=== PATIENT | male | born 1950 | race Caucasian/White ===

== ENCOUNTER → 2017-04-04 | Outpatient (CLI) | payer MEDICARE ==
[~2017-04-04] MED LIST: ACET-1757 PO; ALLO300T PO; AMLO5TAB4 PO; ASPI-621 PO; CEPH-376 PO; CHOL2000 PO; ENOX100S5 SQ; FLUT16SP NS; HYDR1TAB12 PO; LEVO88TA43 PO; LISI-170 PO; LORA10TA62 PO; MAGN300C PO; METO25TA35 PO; METO50TA82 PO; MULT-412 PO; MULT1TAB60 PO; OMEP20TA62 PO; PANT40TA3 PO; PROM25SU35 PR; SORA200T PO; URSO300C27 PO; WARF3TAB PO-COUM; WARF5TAB PO; WARF5TAB7 PO; WARF7.5T6 PO; [UNRECOGNIZED DRUG - CODE] PO
== END | disposition home or self-care (01) ==
LOC: SUSANVILLE 07:00
PROVIDERS: ATTEND Internal Medicine Cardiovascular Disease
DX: I08.2 Rheumatic disorders of both aortic and tricuspid valves (principal); I77.819 Aortic ectasia, unspecified site; I25.10 Atherosclerotic heart disease of native coronary artery without angina pectoris; I10 Essential (primary) hypertension; E78.5 Hyperlipidemia, unspecified; Z95.5 Presence of coronary angioplasty implant and graft
CPT/HCPCS: 93306

== ENCOUNTER 2017-08-29 11:59 | Inpatient (IN) | payer MEDICARE ==
[~2017-08-29] VITALS: Ht 180.3 cm; Wt 88.4 kg
[~2017-08-29 11:59] MED LIST changes: +AMIO200T42 PO; +CALC667C PO; +FLAV100T PO; +MIDO5TAB PO; +WARF-36 PO; -WARF5TAB7 PO; +WARF7.5T46 PO; -WARF7.5T6 PO
[2017-08-29] MEDS ORDERED: SODIUM CHLORIDE FLUSH 10ML SYR IVF ONE (12:30)
[2017-08-29] MEDS ORDERED: ALBUTEROL/IPRATROPIUM 2.5MG/0.5MG, 3 ML NPPB ONE (12:30)
[2017-08-29] MEDS ORDERED: PLEASE ENTER HEIGHT AND WEIGHT MC SCH (12:30)
[2017-08-29] MEDS ORDERED: ALBUTEROL/IPRATROPIUM 2.5MG/0.5MG, 3 ML ONE (12:36)
[2017-08-29] MEDS ORDERED: HYDROcodone/APAP 5/325 TABLET ONE (12:47)
[2017-08-29 12:49] LABS: ALANINE AMINOTRANSFERASE 29 U/L (12-78); ALBUMIN 2.5 g/dL (3.4-5.0); ANION GAP 12 mmol/L (5-15); CHLORIDE 99 mmol/L (98-107); CREATININE 5.14 mg/dL (0.7-1.3)
[2017-08-29 12:54] LABS: ALKALINE PHOSPHATASE 93 U/L (45-117); BILIRUBIN,TOTAL 0.4 mg/dL (0.2-1.0); TOTAL PROTEIN 6.9 g/dL (6.4-8.2); TROPONIN I < 0.015 ng/mL (0.000-0.045)
[2017-08-29 13:02] LABS: MD YES; MEAN CORPUSCULAR HEMOGLOBIN 31.2 pg (27.5-34.5); MEAN CORPUSCULAR HGB CONC 33.4 g/dL (33.2-36.2); MEAN CORPUSCULAR VOLUME 93.3 fL (81-97); MEAN PLATELET VOLUME 7.1 fL (7.4-10.4); PLATELET COUNT 140 x10^3/uL (130-400); RED BLOOD COUNT 3.79 x10^6/uL (4.38-5.82); RED CELL DISTRIBUTION WIDTH 16.3 % (9.4-14.8)
[2017-08-29 13:08] LABS: <PLATELET ESTIMATE> ADEQUATE; <PLT MORPHOLOGY> NORMAL PLT MORPH; EOS#(MANUAL) 0.96 x10^3/uL (0.0-0.4); EOS% (MANUAL) 15 % (1-7); LYMPH#(MANUAL) 0.32 x10^3/uL (1-3.4); LYMPHS% (MANUAL) 5 % (22-44); MONOS#(MANUAL) 0.26 x10^3/uL (0.3-2.7); MONOS% (MANUAL) 4 % (2-9); SEG#(MANUAL) 4.86 x10^3/uL (1.8-6.8); SEGS% (MANUAL) 76 % (42-75)
[2017-08-29 13:09] LABS: ANISOCYTOSIS 1+; POLYCHROMASIA 1+
[2017-08-29] MEDS ORDERED: ERGO500017 PO (14:07)
[2017-08-29] MEDS ORDERED: TAMS0.4C2 PO (14:07)
[2017-08-29] MEDS ORDERED: WARF2.5T73 PO (14:07)
[2017-08-29] MEDS ORDERED: WARF-36 PO (14:07)
[2017-08-29] MEDS ORDERED: ONDA4TAB7 PO (14:13)
[2017-08-29] MEDS ORDERED: CALC0.25 PO (14:13)
[2017-08-29] MEDS ORDERED: LACT1CAP35 PO (14:13)
[2017-08-29] MEDS ORDERED: ALLO100T30 PO (14:13)
[2017-08-29] MEDS ORDERED: FURO-93 PO (14:13)
[2017-08-29] MEDS ORDERED: OXYC-302 PO (14:13)
[2017-08-29] MEDS ORDERED: OXYGEN INH (14:15)
[2017-08-29] MEDS ORDERED: SODIUM CHLORIDE FLUSH 10ML SYR IVF PRN (14:30)
[2017-08-29 15:48] LABS: INTERNATIONAL NORMALIZED RATIO 1.63 (0.93-1.1); PROTHROMBIN TIME 16.8 Seconds (9.6-11.5)
[2017-08-29 16:26] VITALS: BP 146/82
[2017-08-29] MEDS: TORSEMIDE 20 MG TABLET PO SCH (16:55)
[2017-08-29] MEDS ORDERED: ALBUTEROL SULFATE 2.5 MG/3 ML NPPB PRN (17:00)
[2017-08-29 17:21] LABS: TROPONIN I < 0.015 ng/mL (0.000-0.045)
[2017-08-29] MEDS ORDERED: WARFARIN 3 MG TABLET PO-COUM ONE (18:00)
[2017-08-29 18:41] VITALS: BP 129/75
[2017-08-29 23:30] LABS: TROPONIN I < 0.015 ng/mL (0.000-0.045)
[2017-08-30 01:49] VITALS: BP 131/70
[2017-08-30 05:01] LABS: BASOPHILS # (AUTO) 0.02 x10^3/uL (0-0.1); BASOPHILS % (AUTO) 0 % (0-1); EOSINOPHILS # (AUTO) 1.04 x10^3/uL (0-0.4); EOSINOPHILS % (AUTO) 20 % (1-7); LYMPHOCYTES # (AUTO) 0.85 x10^3/uL (1-3.4); LYMPHOCYTES % (AUTO) 16 % (22-44); MD NO; MEAN CORPUSCULAR HEMOGLOBIN 31.4 pg (27.5-34.5); MEAN CORPUSCULAR HGB CONC 32.9 g/dL (33.2-36.2); MEAN CORPUSCULAR VOLUME 95.4 fL (81-97); MEAN PLATELET VOLUME 7.2 fL (7.4-10.4); MONOCYTES % (AUTO) 10 % (2-9); NEUTROPHILS % (AUTO) 54 % (42-75); PLATELET COUNT 126 x10^3/uL (130-400); RED CELL DISTRIBUTION WIDTH 16.4 % (9.4-14.8)
[2017-08-30 05:07] LABS: INTERNATIONAL NORMALIZED RATIO 1.69 (0.93-1.1); PROTHROMBIN TIME 17.4 Seconds (9.6-11.5)
[2017-08-30 05:09] LABS: ALBUMIN 2.1 g/dL (3.4-5.0); CALCIUM 8.7 mg/dL (8.5-10.1); CHLORIDE 104 mmol/L (98-107)
[2017-08-30 05:20] LABS: ALANINE AMINOTRANSFERASE 23 U/L (12-78); ALKALINE PHOSPHATASE 78 U/L (45-117); ANION GAP 11 mmol/L (5-15); BILIRUBIN,TOTAL 0.5 mg/dL (0.2-1.0); CHOL/HDL RATIO 5.3; CHOLESTEROL, TOTAL 143 mg/dL (140-239); CREATININE 5.84 mg/dL (0.7-1.3); HDL CHOL % 19 % (26-37); HDL CHOLESTEROL (DIRECT) 27 mg/dL (40-60); LDL CHOLESTEROL,CALCULATED 89 mg/dL (54-169); LDL/HDL RATIO 3.3 (0.5-3.0); TOTAL PROTEIN 6.1 g/dL (6.4-8.2); TRIGLYCERIDES 134 mg/dL (50-200); VLDL CHOLESTEROL 27 mg/dL (0-25)
[2017-08-30] MEDS ORDERED: ASPIRIN 325 MG TABLET PO SCH (06:00)
[2017-08-30 08:00] VITALS: BP 153/86
[2017-08-30] MEDS ORDERED: REGADENOSON 0.4 MG/5 ML SYRINGE ONE (08:09)
[2017-08-30] MEDS: TORSEMIDE 20 MG TABLET PO SCH (10:53)
[2017-08-30 13:41] VITALS: BP 149/83
[2017-08-30] MEDS: CALCIUM ACETATE 667 MG CAPSULE PO SCH (16:34)
[2017-08-30] MEDS: URSODIOL 300 MG CAPSULE PO SCH ×2 (16:34→21:01)
[2017-08-30] MEDS ORDERED: WARFARIN 5 MG TABLET PO-COUM ONE (18:00)
[2017-08-30 18:28] VITALS: BP 156/85
[2017-08-30] MEDS: ATORVASTATIN 20 MG TABLET PO SCH (21:02)
[2017-08-30] MEDS: AMIODARONE 200 MG TABLET PO SCH (21:02)
[2017-08-31 01:27] VITALS: BP 147/87
[2017-08-31 04:53] LABS: INTERNATIONAL NORMALIZED RATIO 1.63 (0.93-1.1); PROTHROMBIN TIME 16.8 Seconds (9.6-11.5)
[2017-08-31 04:59] LABS: ALANINE AMINOTRANSFERASE 22 U/L (12-78); ALBUMIN 2.2 g/dL (3.4-5.0); ANION GAP 12 mmol/L (5-15); CALCIUM 8.9 mg/dL (8.5-10.1); CHLORIDE 102 mmol/L (98-107); CREATININE 6.38 mg/dL (0.7-1.3)
[2017-08-31 05:01] LABS: ALKALINE PHOSPHATASE 79 U/L (45-117); BILIRUBIN,TOTAL 0.3 mg/dL (0.2-1.0); TOTAL PROTEIN 6.2 g/dL (6.4-8.2)
[2017-08-31] MEDS ORDERED: ASPIRIN 81 MG TABLET EC PO SCH (06:00)
[2017-08-31] MEDS: CALCIUM ACETATE 667 MG CAPSULE PO SCH ×3 (08:00→17:38)
[2017-08-31] MEDS: AMIODARONE 200 MG TABLET PO SCH ×2 (08:32→20:58)
[2017-08-31] MEDS: ALLOPURINOL 100 MG TABLET PO SCH (08:32)
[2017-08-31] MEDS: OMEPRAZOLE 20 MG CAPSULE.DR PO SCH (08:32)
[2017-08-31] MEDS: LEVOTHYROXINE 88 MCG TABLET PO SCH (08:32)
[2017-08-31] MEDS: TAMSULOSIN 0.4 MG CAP.ER.24H PO SCH (08:33)
[2017-08-31] MEDS: MULTIVITAMIN 1 TABLET PO SCH (08:33)
[2017-08-31 08:45] VITALS: BP 146/70
[2017-08-31] MEDS: TORSEMIDE 20 MG TABLET PO SCH (09:00)
[2017-08-31] MEDS: URSODIOL 300 MG CAPSULE PO SCH ×2 (09:00→20:58)
[2017-08-31] MEDS ORDERED: SORAFENIB TOSYLATE 200 MG PO SCH (09:00)
[2017-08-31] MEDS ORDERED: MIDAZOLAM 1 MG/ML, 5ML ONE (11:46)
[2017-08-31] MEDS ORDERED: FENTANYL PF 100 MCG/2ML ONE (11:46)
[2017-08-31] MEDS ORDERED: BIVALIRUDIN 250 MG ONE (11:47)
[2017-08-31] MEDS ORDERED: NITROGLYCERIN 5 MG/ML, 10ML ONE (11:47)
[2017-08-31] MEDS ORDERED: TICAGRELOR 90 MG TABLET ONE (11:47)
[2017-08-31] MEDS ORDERED: HEPARIN 1,000 UNITS/ML, 10ML ONE (11:47)
[2017-08-31] MEDS ORDERED: LIDOCAINE 2%, 2ML ONE (11:47)
[2017-08-31] MEDS ORDERED: VERAPAMIL 2.5 MG/ML, 2ML ONE (11:47)
[2017-08-31] MEDS ORDERED: CLOPIDOGREL 300 MG TABLET ONE (13:00)
[2017-08-31] MEDS ORDERED: BIVALIRUDIN 250 MG in DEXTROSE 5% 50 ML IV SCH (13:07)
[2017-08-31 14:00] VITALS: BP 126/66
[2017-08-31] MEDS ORDERED: WARFARIN 5 MG TABLET PO-COUM SCH (18:00)
[2017-08-31 19:25] VITALS: BP 155/94
[2017-08-31] MEDS ORDERED: HYDROcodone/APAP 5/325 TABLET PO PRN (20:00)
[2017-08-31] MEDS: ATORVASTATIN 20 MG TABLET PO SCH (20:58)
[2017-09-01 00:45] VITALS: BP 144/83
[2017-09-01 04:46] LABS: INTERNATIONAL NORMALIZED RATIO 1.69 (0.93-1.1); PROTHROMBIN TIME 17.4 Seconds (9.6-11.5)
[2017-09-01 04:52] LABS: ANION GAP 13 mmol/L (5-15); CALCIUM 8.8 mg/dL (8.5-10.1); CHLORIDE 99 mmol/L (98-107)
[2017-09-01 04:57] LABS: ALANINE AMINOTRANSFERASE 22 U/L (12-78); ALKALINE PHOSPHATASE 82 U/L (45-117); BILIRUBIN,TOTAL 0.5 mg/dL (0.2-1.0); CREATININE 6.86 mg/dL (0.7-1.3); TOTAL PROTEIN 5.9 g/dL (6.4-8.2)
[2017-09-01 07:35] LABS: BASOPHILS # (AUTO) 0.01 x10^3/uL (0-0.1); BASOPHILS % (AUTO) 0 % (0-1); EOSINOPHILS # (AUTO) 1.02 x10^3/uL (0-0.4); EOSINOPHILS % (AUTO) 20 % (1-7); LYMPHOCYTES # (AUTO) 0.66 x10^3/uL (1-3.4); LYMPHOCYTES % (AUTO) 13 % (22-44); MD NO; MEAN CORPUSCULAR HEMOGLOBIN 30.5 pg (27.5-34.5); MEAN CORPUSCULAR HGB CONC 32.7 g/dL (33.2-36.2); MEAN CORPUSCULAR VOLUME 93.3 fL (81-97); MEAN PLATELET VOLUME 7.3 fL (7.4-10.4); MONOCYTES # (AUTO) 0.59 x10^3/uL (0.2-0.8); MONOCYTES % (AUTO) 11 % (2-9); NEUTROPHILS # (AUTO) 2.96 x10^3/uL (1.8-6.8); NEUTROPHILS % (AUTO) 57 % (42-75); PLATELET COUNT 140 x10^3/uL (130-400); RED BLOOD COUNT 3.29 x10^6/uL (4.38-5.82); RED CELL DISTRIBUTION WIDTH 16.5 % (9.4-14.8)
[2017-09-01 08:30] VITALS: BP 113/68
[2017-09-01] MEDS: TORSEMIDE 20 MG TABLET PO SCH (09:00)
[2017-09-01] MEDS: OMEPRAZOLE 20 MG CAPSULE.DR PO SCH (09:17)
[2017-09-01] MEDS: ALLOPURINOL 100 MG TABLET PO SCH (09:17)
[2017-09-01] MEDS: CLOPIDOGREL 75 MG TABLET PO SCH (09:17)
[2017-09-01] MEDS: TAMSULOSIN 0.4 MG CAP.ER.24H PO SCH (09:18)
[2017-09-01] MEDS: MULTIVITAMIN 1 TABLET PO SCH (09:18)
[2017-09-01] MEDS: LEVOTHYROXINE 88 MCG TABLET PO SCH (09:18)
[2017-09-01] MEDS: AMIODARONE 200 MG TABLET PO SCH (09:18)
[2017-09-01] MEDS: CALCIUM ACETATE 667 MG CAPSULE PO SCH ×3 (09:18→17:39)
[2017-09-01] MEDS ORDERED: DIPHENHYDRAMINE 25 MG CAPSULE PO ONE (10:30)
[2017-09-01] MEDS: URSODIOL 300 MG CAPSULE PO SCH ×2 (12:34→20:27)
[2017-09-01 13:30] VITALS: BP 148/91
[2017-09-01] MEDS ORDERED: WARFARIN 5 MG TABLET PO-COUM SCH (18:00)
[2017-09-01 19:38] VITALS: BP 135/78
[2017-09-01] MEDS: ATORVASTATIN 20 MG TABLET PO SCH (20:27)
[2017-09-02 01:12] VITALS: BP 118/73
[2017-09-02 05:31] LABS: INTERNATIONAL NORMALIZED RATIO 1.69 (0.93-1.1); PROTHROMBIN TIME 17.4 Seconds (9.6-11.5)
[2017-09-02 05:32] LABS: BASOPHILS # (AUTO) 0.01 x10^3/uL (0-0.1); BASOPHILS % (AUTO) 0 % (0-1); EOSINOPHILS # (AUTO) 0.95 x10^3/uL (0-0.4); EOSINOPHILS % (AUTO) 18 % (1-7); LYMPHOCYTES # (AUTO) 0.78 x10^3/uL (1-3.4); LYMPHOCYTES % (AUTO) 15 % (22-44); MD NO; MEAN CORPUSCULAR HEMOGLOBIN 31.1 pg (27.5-34.5); MEAN CORPUSCULAR HGB CONC 32.9 g/dL (33.2-36.2); MEAN CORPUSCULAR VOLUME 94.4 fL (81-97); MEAN PLATELET VOLUME 6.8 fL (7.4-10.4); MONOCYTES # (AUTO) 0.58 x10^3/uL (0.2-0.8); MONOCYTES % (AUTO) 11 % (2-9); NEUTROPHILS # (AUTO) 3.03 x10^3/uL (1.8-6.8); NEUTROPHILS % (AUTO) 57 % (42-75); PLATELET COUNT 103 x10^3/uL (130-400); RED BLOOD COUNT 3.08 x10^6/uL (4.38-5.82); RED CELL DISTRIBUTION WIDTH 16.9 % (9.4-14.8)
[2017-09-02 05:40] LABS: CALCIUM 8.7 mg/dL (8.5-10.1); CHLORIDE 104 mmol/L (98-107)
[2017-09-02 05:46] LABS: ALANINE AMINOTRANSFERASE 22 U/L (12-78); ALBUMIN 2.1 g/dL (3.4-5.0); ALKALINE PHOSPHATASE 72 U/L (45-117); ANION GAP 12 mmol/L (5-15); BILIRUBIN,TOTAL 0.4 mg/dL (0.2-1.0); CREATININE 6.04 mg/dL (0.7-1.3); TOTAL PROTEIN 5.8 g/dL (6.4-8.2)
[2017-09-02 08:00] VITALS: BP 116/67
[2017-09-02] MEDS: LEVOTHYROXINE 88 MCG TABLET PO SCH (08:45)
[2017-09-02] MEDS: CALCIUM ACETATE 667 MG CAPSULE PO SCH ×3 (08:45→17:23)
[2017-09-02] MEDS: MULTIVITAMIN 1 TABLET PO SCH (08:46)
[2017-09-02] MEDS: CLOPIDOGREL 75 MG TABLET PO SCH (08:46)
[2017-09-02] MEDS: TAMSULOSIN 0.4 MG CAP.ER.24H PO SCH (08:46)
[2017-09-02] MEDS: ALLOPURINOL 100 MG TABLET PO SCH (08:46)
[2017-09-02] MEDS: AMIODARONE 200 MG TABLET PO SCH (08:46)
[2017-09-02] MEDS: OMEPRAZOLE 20 MG CAPSULE.DR PO SCH (08:47)
[2017-09-02] MEDS: TORSEMIDE 20 MG TABLET PO SCH (08:48)
[2017-09-02] MEDS: URSODIOL 300 MG CAPSULE PO SCH ×2 (08:48→20:44)
[2017-09-02] MEDS ORDERED: DIPHENHYDRAMINE 25 MG CAPSULE PO ONE (09:00)
[2017-09-02] MEDS: ONDANSETRON ODT 4 MG PO PRN (12:29)
[2017-09-02 14:30] VITALS: BP 115/65
[2017-09-02] MEDS ORDERED: DEXTROMETHORPHAN 30 MG/5 ML ORAL SOL PO PRN (14:30)
[2017-09-02] MEDS ORDERED: WARFARIN 7.5 MG TABLET PO-COUM SCH (18:00)
[2017-09-02] MEDS: ATORVASTATIN 20 MG TABLET PO SCH (20:44)
[2017-09-02] MEDS: GUAIFENESIN 200 MG TABLET PO SCH (20:44)
[2017-09-02 20:45] VITALS: BP 125/76
[2017-09-03 03:08] VITALS: BP 116/64
[2017-09-03 05:47] LABS: INTERNATIONAL NORMALIZED RATIO 1.84 (0.93-1.1); PROTHROMBIN TIME 18.9 Seconds (9.6-11.5)
[2017-09-03 05:56] LABS: CHLORIDE 106 mmol/L (98-107)
[2017-09-03] MEDS: LEVOTHYROXINE 88 MCG TABLET PO SCH (06:00)
[2017-09-03 06:17] LABS: ALANINE AMINOTRANSFERASE 21 U/L (12-78); ALKALINE PHOSPHATASE 70 U/L (45-117); ANION GAP 8 mmol/L (5-15); BILIRUBIN,TOTAL 0.5 mg/dL (0.2-1.0); CREATININE 4.61 mg/dL (0.7-1.3); TOTAL PROTEIN 5.8 g/dL (6.4-8.2)
[2017-09-03 07:13] VITALS: BP 114/61
[2017-09-03] MEDS: CLOPIDOGREL 75 MG TABLET PO SCH (07:57)
[2017-09-03] MEDS: AMIODARONE 200 MG TABLET PO SCH (07:57)
[2017-09-03] MEDS: ALLOPURINOL 100 MG TABLET PO SCH (07:57)
[2017-09-03] MEDS: CALCIUM ACETATE 667 MG CAPSULE PO SCH ×3 (07:58→17:43)
[2017-09-03] MEDS: GUAIFENESIN 200 MG TABLET PO SCH ×2 (07:58→22:10)
[2017-09-03] MEDS: OMEPRAZOLE 20 MG CAPSULE.DR PO SCH (07:58)
[2017-09-03] MEDS: TAMSULOSIN 0.4 MG CAP.ER.24H PO SCH (07:58)
[2017-09-03] MEDS: TORSEMIDE 20 MG TABLET PO SCH (08:04)
[2017-09-03] MEDS: MULTIVITAMIN 1 TABLET PO SCH (08:04)
[2017-09-03] MEDS: URSODIOL 300 MG CAPSULE PO SCH ×2 (08:06→22:10)
[2017-09-03 12:45] VITALS: BP 128/70
[2017-09-03] MEDS ORDERED: WARFARIN 3 MG TABLET PO-COUM SCH (18:00)
[2017-09-03 19:20] VITALS: BP 132/65
[2017-09-03] MEDS: ATORVASTATIN 20 MG TABLET PO SCH (22:09)
[2017-09-04 00:58] VITALS: BP 123/56
[2017-09-04 05:16] LABS: INTERNATIONAL NORMALIZED RATIO 2.12 (0.93-1.1); PROTHROMBIN TIME 21.7 Seconds (9.6-11.5)
[2017-09-04 05:21] LABS: CHLORIDE 106 mmol/L (98-107)
[2017-09-04 05:29] LABS: ALANINE AMINOTRANSFERASE 21 U/L (12-78); ALKALINE PHOSPHATASE 64 U/L (45-117); BILIRUBIN,TOTAL 0.7 mg/dL (0.2-1.0); CALCIUM 9.3 mg/dL (8.5-10.1); CREATININE 6.17 mg/dL (0.7-1.3); TOTAL PROTEIN 5.8 g/dL (6.4-8.2)
[2017-09-04 05:32] LABS: ANION GAP 7 mmol/L (5-15)
[2017-09-04] MEDS: LEVOTHYROXINE 88 MCG TABLET PO SCH (06:00)
[2017-09-04] MEDS ORDERED: EPINEPHRINE 1 MG/ML, 1ML ONE (06:16)
[2017-09-04] MEDS ORDERED: BUPIVACAINE/PF 0.5% ONE (06:16)
[2017-09-04] MEDS ORDERED: LIDOCAINE GEL 2%, 5ML ONE (07:21)
[2017-09-04] MEDS ORDERED: FENTANYL PF 100 MCG/2ML ONE ×2 (07:21→08:22)
[2017-09-04] MEDS ORDERED: LIDOCAINE 2%, 10ML ONE (07:22)
[2017-09-04] MEDS ORDERED: ALBUTEROL SULFATE 2.5 MG/3 ML NPPB PRN (07:30)
[2017-09-04] MEDS ORDERED: hydrALAzine 20 MG/ML, 1ML IV PRN (07:30)
[2017-09-04] MEDS ORDERED: MEPERIDINE/PF 25MG/0.5ML IVPush PRN (07:30)
[2017-09-04] MEDS ORDERED: OXYcodone 5 MG/5 ML ORAL.SOL UDC PO PRN (07:30)
[2017-09-04] MEDS ORDERED: ACETAMINOPHEN 325 MG TABLET PO PRN (07:30)
[2017-09-04] MEDS ORDERED: LABETALOL 5MG/ML, 20ML IV PRN (07:30)
[2017-09-04] MEDS ORDERED: ONDANSETRON 2MG/ML, 2ML IVPush PRN (07:30)
[2017-09-04] MEDS ORDERED: MIDAZOLAM 1 MG/ML, 2ML IV PRN (07:30)
[2017-09-04] MEDS ORDERED: PROMETHAZINE 25 MG/ML, 1ML IV PRN (07:30)
[2017-09-04] MEDS ORDERED: ALBUTEROL/IPRATROPIUM 2.5MG/0.5MG, 3 ML NPPB PRN (07:30)
[2017-09-04] MEDS ORDERED: ROCURONIUM 10 MG/ML,10ML ONE (07:35)
[2017-09-04] MEDS ORDERED: GLYCOPYRROLATE 0.2MG/1ML, 5ML ONE (08:05)
[2017-09-04] MEDS ORDERED: CEFAZOLIN 1,000 MG ONE (08:05)
[2017-09-04] MEDS ORDERED: SUCCINYLCHOLINE 20 MG/ML, 10ML ONE (08:05)
[2017-09-04] MEDS ORDERED: PROPOFOL 10 MG/ML, 20ML ONE (08:05)
[2017-09-04] MEDS ORDERED: DEXAMETHASONE 4 MG/ML, 1ML ONE (08:05)
[2017-09-04] MEDS ORDERED: NEOSTIGMINE 1 MG/ML, 10ML ONE (08:05)
[2017-09-04] MEDS ORDERED: OXYcodone 5 MG/5 ML ORAL.SOL UDC ONE (08:22)
[2017-09-04] MEDS: FENTANYL PF 100 MCG/2ML IV PRN ×2 (08:25→08:39)
[2017-09-04 09:14] VITALS: BP 118/66
[2017-09-04] MEDS: MULTIVITAMIN 1 TABLET PO SCH (10:02)
[2017-09-04] MEDS: OMEPRAZOLE 20 MG CAPSULE.DR PO SCH (10:02)
[2017-09-04] MEDS: TAMSULOSIN 0.4 MG CAP.ER.24H PO SCH (10:02)
[2017-09-04] MEDS: AMIODARONE 200 MG TABLET PO SCH (10:02)
[2017-09-04] MEDS: URSODIOL 300 MG CAPSULE PO SCH ×2 (10:02→19:58)
[2017-09-04] MEDS: CALCIUM ACETATE 667 MG CAPSULE PO SCH ×3 (10:03→17:42)
[2017-09-04] MEDS: TORSEMIDE 20 MG TABLET PO SCH (10:03)
[2017-09-04] MEDS: ALLOPURINOL 100 MG TABLET PO SCH (10:03)
[2017-09-04] MEDS: GUAIFENESIN 200 MG TABLET PO SCH ×2 (10:08→19:58)
[2017-09-04] MEDS: CLOPIDOGREL 75 MG TABLET PO SCH (10:23)
[2017-09-04 12:21] VITALS: BP 111/64
[2017-09-04] MEDS: HYDROcodone/APAP 5/325 TABLET PO PRN ×2 (13:32→19:59)
[2017-09-04] MEDS ORDERED: WARFARIN 2.5 MG TABLET PO-COUM ONE (18:00)
[2017-09-04 19:25] VITALS: BP 125/68
[2017-09-04] MEDS: ATORVASTATIN 20 MG TABLET PO SCH (19:58)
[2017-09-05 01:59] VITALS: BP 130/65
[2017-09-05 05:41] LABS: INTERNATIONAL NORMALIZED RATIO 2.61 (0.93-1.1); PROTHROMBIN TIME 26.6 Seconds (9.6-11.5)
[2017-09-05 05:48] LABS: BASOPHILS % (AUTO) 0 % (0-1); CHLORIDE 104 mmol/L (98-107); EOSINOPHILS # (AUTO) 0.01 x10^3/uL (0-0.4); EOSINOPHILS % (AUTO) 0 % (1-7); LYMPHOCYTES % (AUTO) 6 % (22-44); MD NO; MEAN CORPUSCULAR HEMOGLOBIN 30.8 pg (27.5-34.5); MEAN CORPUSCULAR VOLUME 93.4 fL (81-97); MEAN PLATELET VOLUME 8.1 fL (7.4-10.4); MONOCYTES # (AUTO) 0.37 x10^3/uL (0.2-0.8); MONOCYTES % (AUTO) 5 % (2-9); NEUTROPHILS # (AUTO) 6.99 x10^3/uL (1.8-6.8); NEUTROPHILS % (AUTO) 89 % (42-75); PLATELET COUNT 123 x10^3/uL (130-400); RED BLOOD COUNT 3.22 x10^6/uL (4.38-5.82); RED CELL DISTRIBUTION WIDTH 16.8 % (9.4-14.8)
[2017-09-05 05:56] LABS: ALANINE AMINOTRANSFERASE 15 U/L (12-78); ALBUMIN 2.1 g/dL (3.4-5.0); ALKALINE PHOSPHATASE 72 U/L (45-117); ANION GAP 9 mmol/L (5-15); BILIRUBIN,TOTAL 0.5 mg/dL (0.2-1.0); CALCIUM 9.2 mg/dL (8.5-10.1); CREATININE 7.41 mg/dL (0.7-1.3); TOTAL PROTEIN 6.2 g/dL (6.4-8.2)
[2017-09-05] MEDS: HYDROcodone/APAP 5/325 TABLET PO PRN (06:06)
[2017-09-05] MEDS: LEVOTHYROXINE 88 MCG TABLET PO SCH (06:06)
[2017-09-05] MEDS: GUAIFENESIN 200 MG TABLET PO SCH ×2 (07:16→21:14)
[2017-09-05] MEDS: OMEPRAZOLE 20 MG CAPSULE.DR PO SCH (07:16)
[2017-09-05] MEDS: ONDANSETRON ODT 4 MG PO PRN (07:16)
[2017-09-05] MEDS ORDERED: ALBUMIN HUMAN 25% 100 ML IV PRN (08:00)
[2017-09-05] MEDS ORDERED: MIDODRINE 5 MG TABLET PO SCH (08:00)
[2017-09-05] MEDS ORDERED: DIPHENHYDRAMINE 50 MG/ML, 1ML IVPush SCH (08:00)
[2017-09-05] MEDS: CALCIUM ACETATE 667 MG CAPSULE PO SCH ×3 (08:29→17:53)
[2017-09-05 08:36] VITALS: BP 116/63
[2017-09-05 12:42] VITALS: BP 113/76
[2017-09-05] MEDS: TAMSULOSIN 0.4 MG CAP.ER.24H PO SCH (12:53)
[2017-09-05] MEDS: TORSEMIDE 20 MG TABLET PO SCH (12:53)
[2017-09-05] MEDS: AMIODARONE 200 MG TABLET PO SCH (12:53)
[2017-09-05] MEDS: URSODIOL 300 MG CAPSULE PO SCH ×2 (12:53→21:14)
[2017-09-05] MEDS: MULTIVITAMIN 1 TABLET PO SCH (12:53)
[2017-09-05] MEDS: CLOPIDOGREL 75 MG TABLET PO SCH (12:54)
[2017-09-05] MEDS: ALLOPURINOL 100 MG TABLET PO SCH (12:54)
[2017-09-05] MEDS ORDERED: WARFARIN 2 MG TABLET PO-COUM ONE (18:00)
[2017-09-05 19:29] VITALS: BP 130/62
[2017-09-05] MEDS: ATORVASTATIN 20 MG TABLET PO SCH (21:14)
[2017-09-06 01:24] VITALS: BP 109/59
[2017-09-06] MEDS: LEVOTHYROXINE 88 MCG TABLET PO SCH (06:00)
[2017-09-06 06:14] LABS: INTERNATIONAL NORMALIZED RATIO 2.11 (0.93-1.1); PROTHROMBIN TIME 21.6 Seconds (9.6-11.5)
[2017-09-06 07:10] VITALS: BP 107/57
[2017-09-06] MEDS: MULTIVITAMIN 1 TABLET PO SCH (08:31)
[2017-09-06] MEDS: TAMSULOSIN 0.4 MG CAP.ER.24H PO SCH (08:31)
[2017-09-06] MEDS: OMEPRAZOLE 20 MG CAPSULE.DR PO SCH (08:31)
[2017-09-06] MEDS: AMIODARONE 200 MG TABLET PO SCH (08:31)
[2017-09-06] MEDS: CLOPIDOGREL 75 MG TABLET PO SCH (08:31)
[2017-09-06] MEDS: GUAIFENESIN 200 MG TABLET PO SCH ×2 (08:31→22:07)
[2017-09-06] MEDS: CALCIUM ACETATE 667 MG CAPSULE PO SCH ×3 (08:32→17:19)
[2017-09-06] MEDS: TORSEMIDE 20 MG TABLET PO SCH (08:32)
[2017-09-06] MEDS: ALLOPURINOL 100 MG TABLET PO SCH (08:32)
[2017-09-06] MEDS: URSODIOL 300 MG CAPSULE PO SCH ×2 (08:32→22:08)
[2017-09-06 12:18] VITALS: BP 107/62
[2017-09-06] MEDS ORDERED: WARFARIN 5 MG TABLET PO-COUM ONE (18:00)
[2017-09-06 20:18] VITALS: BP 104/60
[2017-09-06] MEDS: ATORVASTATIN 20 MG TABLET PO SCH (22:07)
[2017-09-06] MEDS: HYDROcodone/APAP 5/325 TABLET PO PRN (22:18)
[2017-09-07 02:00] VITALS: BP 108/70
[2017-09-07 05:37] LABS: INTERNATIONAL NORMALIZED RATIO 1.7 (0.93-1.1); PROTHROMBIN TIME 17.5 Seconds (9.6-11.5)
[2017-09-07] MEDS: LEVOTHYROXINE 88 MCG TABLET PO SCH (05:56)
[2017-09-07] MEDS: HYDROcodone/APAP 5/325 TABLET PO PRN (05:59)
[2017-09-07 07:00] VITALS: BP 118/72
[2017-09-07] MEDS: GUAIFENESIN 200 MG TABLET PO SCH (07:41)
[2017-09-07] MEDS: CALCIUM ACETATE 667 MG CAPSULE PO SCH ×2 (07:41→12:27)
[2017-09-07] MEDS: OMEPRAZOLE 20 MG CAPSULE.DR PO SCH (07:41)
[2017-09-07] MEDS ORDERED: DIPHENHYDRAMINE 50 MG/ML, 1ML IVPush ONE (08:00)
[2017-09-07] MEDS ORDERED: MIDODRINE 5 MG TABLET PO SCH (08:00)
[2017-09-07] MEDS: ALBUMIN HUMAN 25% 50 ML IV PRN ×3 (09:00→10:56)
[2017-09-07] MEDS ORDERED: AMIO200T42 PO (10:50)
[2017-09-07] MEDS ORDERED: TORS20TA PO (10:50)
[2017-09-07] MEDS ORDERED: ATOR20TA9 PO (10:50)
[2017-09-07] MEDS ORDERED: CLOP75TA PO (10:50)
[2017-09-07] MEDS ORDERED: MIDO5TAB PO (10:50)
[2017-09-07] MEDS: TAMSULOSIN 0.4 MG CAP.ER.24H PO SCH (12:27)
[2017-09-07] MEDS: AMIODARONE 200 MG TABLET PO SCH (12:27)
[2017-09-07] MEDS: CLOPIDOGREL 75 MG TABLET PO SCH (12:27)
[2017-09-07] MEDS: ALLOPURINOL 100 MG TABLET PO SCH (12:27)
[2017-09-07] MEDS: MULTIVITAMIN 1 TABLET PO SCH (12:27)
[2017-09-07] MEDS: URSODIOL 300 MG CAPSULE PO SCH (12:27)
[2017-09-07] MEDS: TORSEMIDE 20 MG TABLET PO SCH (12:27)
[2017-09-07] MEDS ORDERED: WARFARIN 7.5 MG TABLET PO-COUM ONE (18:00)
== END 2017-09-07 14:45 | disposition home or self-care (01) | DRG 246 ==
LOC: ED 14:02 → EDIP 14:07 → ED 14:41 → 5SO 16:19 → 4WST 09-03 17:12 → DCLOUNGE 09-07 14:30
PROVIDERS: ADMIT Hospitalist; ATTEND Hospitalist
PROC: 027135Z Dilation of Coronary Artery, Two Arteries with Two Drug-eluting Intraluminal Devices, Percutaneous Approach (ICD-10-PCS; 2017-08-31)
PROC: 4A023N7 Measurement of Cardiac Sampling and Pressure, Left Heart, Percutaneous Approach (ICD-10-PCS; 2017-08-31)
PROC: B2111ZZ Fluoroscopy of Multiple Coronary Arteries using Low Osmolar Contrast (ICD-10-PCS; 2017-08-31)
PROC: 5A1D70Z Performance of Urinary Filtration, Intermittent, Less than 6 Hours Per Day (ICD-10-PCS; 2017-09-01)
PROC: 5A1D70Z Performance of Urinary Filtration, Intermittent, Less than 6 Hours Per Day (ICD-10-PCS; 2017-09-02)
PROC: 0WHG43Z Insertion of Infusion Device into Peritoneal Cavity, Percutaneous Endoscopic Approach (ICD-10-PCS; principal; 2017-09-04 07:30)
PROC: 5A1D70Z Performance of Urinary Filtration, Intermittent, Less than 6 Hours Per Day (ICD-10-PCS; 2017-09-05)
PROC: 5A1D70Z Performance of Urinary Filtration, Intermittent, Less than 6 Hours Per Day (ICD-10-PCS; 2017-09-07)
DX: I25.110 Atherosclerotic heart disease of native coronary artery with unstable angina pectoris (principal); N18.6 End stage renal disease; E43 Unspecified severe protein-calorie malnutrition; I82.221 Chronic embolism and thrombosis of inferior vena cava; I13.2 Hypertensive heart and chronic kidney disease with heart failure and with stage 5 chronic kidney disease, or end stage renal disease; C78.00 Secondary malignant neoplasm of unspecified lung; C78.7 Secondary malignant neoplasm of liver and intrahepatic bile duct; D68.69 Other thrombophilia; K61.1 Rectal abscess; I50.22 Chronic systolic (congestive) heart failure; C64.9 Malignant neoplasm of unspecified kidney, except renal pelvis; D69.6 Thrombocytopenia, unspecified; I48.91 Unspecified atrial fibrillation; I45.10 Unspecified right bundle-branch block; D63.1 Anemia in chronic kidney disease; E03.9 Hypothyroidism, unspecified; E78.5 Hyperlipidemia, unspecified; E87.6 Hypokalemia; I25.5 Ischemic cardiomyopathy; K21.9 Gastro-esophageal reflux disease without esophagitis; N25.0 Renal osteodystrophy; R04.0 Epistaxis; F17.290 Nicotine dependence, other tobacco product, uncomplicated; R06.89 Other abnormalities of breathing; I25.2 Old myocardial infarction; Z79.01 Long term (current) use of anticoagulants; Z90.5 Acquired absence of kidney; Z99.81 Dependence on supplemental oxygen; Z68.27 Body mass index [BMI] 27.0-27.9, adult; Z95.5 Presence of coronary angioplasty implant and graft; Z88.5 Allergy status to narcotic agent; Z90.49 Acquired absence of other specified parts of digestive tract
CPT/HCPCS: 36415; 71045; 78452; 80053; 80061; 83735; 83880; 84100; 84443; 84484; 85025; 85610; 86705; 86706; 87340; 93005; 93017; 93458; 94640; 99156; 99157; 99285; C1760; C1894; C9600; J0171; J0583; J0690; J1100; J1644; J2250; J2704; J2710; J2785; J3010; J3490; J7620; P9047; Q0162; A9502; C1725; C1750; C1769; C1874; C1887; C9898; J0330; J1200; Q0163; Q9967

== ENCOUNTER 2017-09-19 20:21 | Inpatient (IN) | payer MEDICARE ==
[~2017-09-19] VITALS: Ht 180.3 cm; Wt 90.9 kg
[~2017-09-19 20:21] MED LIST changes: +ALLO100T30 PO; +ATOR20TA9 PO; +CALC0.25 PO; +CLOP75TA PO; +ERGO500017 PO; +FURO-93 PO; +LACT1CAP35 PO; +ONDA4TAB7 PO; +OXYC-302 PO; +OXYGEN INH; +TAMS0.4C2 PO; +TORS20TA PO; +WARF2.5T73 PO
[2017-09-19] MEDS ORDERED: SODIUM CHLORIDE FLUSH 10ML SYR IVF ONE (20:30)
[2017-09-19] MEDS ORDERED: VANCOMYCIN PER PHARMACY MC PRN ×2 (20:30→23:00)
[2017-09-19] MEDS ORDERED: SODIUM CHLORIDE 0.9% 1,000ML IVBOLUS ONE (20:30)
[2017-09-19] MEDS ORDERED: VANCOMYCIN 1,800 MG in SODIUM CHLORIDE 0.9% 250 ML IV ONE (21:00)
[2017-09-19] MEDS ORDERED: PLEASE ENTER HEIGHT AND WEIGHT MC SCH (21:00)
[2017-09-19 21:03] LABS: BASOPHILS % (AUTO) 0 % (0-1); EOSINOPHILS # (AUTO) 0.05 x10^3/uL (0-0.4); EOSINOPHILS % (AUTO) 1 % (1-7); LYMPHOCYTES # (AUTO) 0.55 x10^3/uL (1-3.4); LYMPHOCYTES % (AUTO) 6 % (22-44); MD NO; MEAN CORPUSCULAR HEMOGLOBIN 31.1 pg (27.5-34.5); MEAN CORPUSCULAR HGB CONC 33.1 g/dL (33.2-36.2); MEAN CORPUSCULAR VOLUME 93.9 fL (81-97); MEAN PLATELET VOLUME 7.5 fL (7.4-10.4); MONOCYTES # (AUTO) 0.99 x10^3/uL (0.2-0.8); MONOCYTES % (AUTO) 11 % (2-9); NEUTROPHILS # (AUTO) 7.11 x10^3/uL (1.8-6.8); NEUTROPHILS % (AUTO) 82 % (42-75); PLATELET COUNT 160 x10^3/uL (130-400); RED BLOOD COUNT 3.23 x10^6/uL (4.38-5.82); RED CELL DISTRIBUTION WIDTH 17.6 % (9.4-14.8)
[2017-09-19 21:14] LABS: ALANINE AMINOTRANSFERASE 19 U/L (12-78); ALBUMIN 2.3 g/dL (3.4-5.0); ANION GAP 7 mmol/L (5-15); CALCIUM 10.4 mg/dL (8.5-10.1); CHLORIDE 98 mmol/L (98-107); CREATININE 7.11 mg/dL (0.7-1.3)
[2017-09-19 21:18] LABS: ALKALINE PHOSPHATASE 71 U/L (45-117); BILIRUBIN,TOTAL 0.6 mg/dL (0.2-1.0); TOTAL PROTEIN 6.5 g/dL (6.4-8.2); TROPONIN I 0.021 ng/mL (0.000-0.045)
[2017-09-19] MEDS ORDERED: hydrALAzine 20 MG/ML, 1ML IVPush PRN (23:00)
[2017-09-19] MEDS ORDERED: POLYETHYLENE GLYCOL 17 GM PACKET PO PRN (23:00)
[2017-09-19] MEDS ORDERED: ONDANSETRON 4 MG TABLET PO PRN (23:00)
[2017-09-19 23:35] VITALS: BP 136/74
[2017-09-20] MEDS: GUAIFENESIN/DM 200-20MG, 10ML UDC PO PRN ×4 (00:38→20:50)
[2017-09-20 02:55] VITALS: BP 102/57
[2017-09-20] MEDS: PIPERACILLIN/TAZO/PMX 2.25GM 50 ML IVPB SCH ×3 (04:15→20:50)
[2017-09-20] MEDS: LEVOTHYROXINE 88 MCG TABLET PO SCH (05:31)
[2017-09-20 05:58] LABS: BASOPHILS # (AUTO) 0.01 x10^3/uL (0-0.1); BASOPHILS % (AUTO) 0 % (0-1); EOSINOPHILS # (AUTO) 0.28 x10^3/uL (0-0.4); EOSINOPHILS % (AUTO) 5 % (1-7); LYMPHOCYTES # (AUTO) 0.43 x10^3/uL (1-3.4); LYMPHOCYTES % (AUTO) 7 % (22-44); MD NO; MEAN CORPUSCULAR HEMOGLOBIN 30.7 pg (27.5-34.5); MEAN CORPUSCULAR HGB CONC 33.1 g/dL (33.2-36.2); MEAN CORPUSCULAR VOLUME 92.7 fL (81-97); MEAN PLATELET VOLUME 7.4 fL (7.4-10.4); MONOCYTES # (AUTO) 0.73 x10^3/uL (0.2-0.8); MONOCYTES % (AUTO) 12 % (2-9); NEUTROPHILS # (AUTO) 4.47 x10^3/uL (1.8-6.8); NEUTROPHILS % (AUTO) 76 % (42-75); PLATELET COUNT 138 x10^3/uL (130-400); RED BLOOD COUNT 2.84 x10^6/uL (4.38-5.82); RED CELL DISTRIBUTION WIDTH 17.6 % (9.4-14.8)
[2017-09-20 06:01] LABS: INTERNATIONAL NORMALIZED RATIO 2.47 (0.93-1.1); PROTHROMBIN TIME 25.2 Seconds (9.6-11.5)
[2017-09-20 06:06] LABS: ANION GAP 6 mmol/L (5-15); CALCIUM 9.4 mg/dL (8.5-10.1); CHLORIDE 101 mmol/L (98-107); CREATININE 7.23 mg/dL (0.7-1.3)
[2017-09-20 06:28] LABS: MICROSCOPIC INDICATED
[2017-09-20 06:37] LABS: CULTURE INDICATED? NO
[2017-09-20 07:05] VITALS: BP 96/59
[2017-09-20] MEDS ORDERED: MAGNESIUM OXIDE 400 MG TABLET PO SCH (09:00)
[2017-09-20] MEDS ORDERED: ICN URSODIOL 20 MG/ML ORAL PO SCH (09:00)
[2017-09-20] MEDS: [UNRECOGNIZED DRUG - OTHER] PO SCH (09:00)
[2017-09-20] MEDS ORDERED: HEPARIN 5,000 UNITS/ML, 1ML SQ SCH (09:00)
[2017-09-20] MEDS: MULTIVITAMIN 1 TABLET PO SCH (09:26)
[2017-09-20] MEDS: OMEPRAZOLE 20 MG CAPSULE.DR PO SCH (09:26)
[2017-09-20] MEDS: AMIODARONE 200 MG TABLET PO SCH (09:26)
[2017-09-20] MEDS: ALLOPURINOL 100 MG TABLET PO SCH (09:26)
[2017-09-20] MEDS: CALCIUM ACETATE 667 MG CAPSULE PO SCH ×3 (09:26→16:18)
[2017-09-20] MEDS: CLOPIDOGREL 75 MG TABLET PO SCH (09:26)
[2017-09-20] MEDS: TAMSULOSIN 0.4 MG CAP.ER.24H PO SCH (09:26)
[2017-09-20] MEDS: URSODIOL 300 MG CAPSULE PO SCH ×2 (10:52→20:50)
[2017-09-20] MEDS: IRON SUCROSE COMPLEX 100MG/5ML IV SCH (10:52)
[2017-09-20] MEDS: GUAIFENESIN 200 MG TABLET PO SCH ×3 (13:12→20:50)
[2017-09-20 13:59] VITALS: BP 102/51
[2017-09-20] MEDS ORDERED: WARFARIN 3 MG TABLET PO-COUM ONE (18:00)
[2017-09-20] MEDS ORDERED: GENTAMICIN CRM 0.1%, 30GM TP PRN (19:30)
[2017-09-20 19:53] VITALS: BP 107/61
[2017-09-20] MEDS: GENTAMICIN OINT 0.1% 15GM TP PRN (20:30)
[2017-09-21 00:48] VITALS: BP 103/56
[2017-09-21] MEDS: PIPERACILLIN/TAZO/PMX 2.25GM 50 ML IVPB SCH ×3 (04:15→20:26)
[2017-09-21] MEDS: GUAIFENESIN 200 MG TABLET PO SCH ×4 (05:45→20:26)
[2017-09-21] MEDS: LEVOTHYROXINE 88 MCG TABLET PO SCH (05:46)
[2017-09-21] MEDS: GUAIFENESIN/DM 200-20MG, 10ML UDC PO PRN ×2 (05:46→18:05)
[2017-09-21 05:56] LABS: ANION GAP 7 mmol/L (5-15); CALCIUM 9.8 mg/dL (8.5-10.1); CHLORIDE 100 mmol/L (98-107)
[2017-09-21 05:59] LABS: CREATININE 7.65 mg/dL (0.7-1.3); VANCOMYCIN,TROUGH 18.9 mcg/mL (5.0-10.0)
[2017-09-21 06:01] LABS: BASOPHILS # (AUTO) 0.01 x10^3/uL (0-0.1); BASOPHILS % (AUTO) 0 % (0-1); EOSINOPHILS # (AUTO) 0.44 x10^3/uL (0-0.4); EOSINOPHILS % (AUTO) 8 % (1-7); LYMPHOCYTES # (AUTO) 0.47 x10^3/uL (1-3.4); LYMPHOCYTES % (AUTO) 9 % (22-44); MD NO; MEAN CORPUSCULAR HEMOGLOBIN 30.9 pg (27.5-34.5); MEAN CORPUSCULAR HGB CONC 33.1 g/dL (33.2-36.2); MEAN CORPUSCULAR VOLUME 93.6 fL (81-97); MEAN PLATELET VOLUME 7.5 fL (7.4-10.4); MONOCYTES # (AUTO) 0.66 x10^3/uL (0.2-0.8); MONOCYTES % (AUTO) 12 % (2-9); NEUTROPHILS # (AUTO) 3.93 x10^3/uL (1.8-6.8); NEUTROPHILS % (AUTO) 71 % (42-75); PLATELET COUNT 169 x10^3/uL (130-400); RED BLOOD COUNT 2.92 x10^6/uL (4.38-5.82); RED CELL DISTRIBUTION WIDTH 17.7 % (9.4-14.8)
[2017-09-21 07:21] VITALS: BP 117/61
[2017-09-21] MEDS: [UNRECOGNIZED DRUG - OTHER] PO SCH (07:30)
[2017-09-21] MEDS: CALCIUM ACETATE 667 MG CAPSULE PO SCH (07:30)
[2017-09-21 07:37] LABS: INTERNATIONAL NORMALIZED RATIO 2.61 (0.93-1.1); PROTHROMBIN TIME 26.6 Seconds (9.6-11.5)
[2017-09-21] MEDS: ALLOPURINOL 100 MG TABLET PO SCH (07:54)
[2017-09-21] MEDS: CLOPIDOGREL 75 MG TABLET PO SCH (07:54)
[2017-09-21] MEDS: MULTIVITAMIN 1 TABLET PO SCH (07:54)
[2017-09-21] MEDS: ACETAMINOPHEN 325 MG TABLET PO PRN ×2 (07:54→21:01)
[2017-09-21] MEDS: IRON SUCROSE COMPLEX 100MG/5ML IV SCH (07:55)
[2017-09-21] MEDS: OMEPRAZOLE 20 MG CAPSULE.DR PO SCH (07:55)
[2017-09-21] MEDS: URSODIOL 300 MG CAPSULE PO SCH ×2 (07:55→20:26)
[2017-09-21] MEDS: AMIODARONE 200 MG TABLET PO SCH (07:55)
[2017-09-21] MEDS: TAMSULOSIN 0.4 MG CAP.ER.24H PO SCH (07:55)
[2017-09-21] MEDS ORDERED: SEVELAMER HCL 800MG TABLET PO SCH (12:00)
[2017-09-21 15:30] VITALS: BP 112/61
[2017-09-21] MEDS: GENTAMICIN OINT 0.1% 15GM TP PRN (18:00)
[2017-09-21] MEDS ORDERED: WARFARIN 2.5 MG TABLET PO-COUM ONE (18:00)
[2017-09-21] MEDS ORDERED: WARFARIN 2.5 MG TABLET PO-COUM SCH (18:00)
[2017-09-21] MEDS ORDERED: WARFARIN 5 MG TABLET PO-COUM ONE (18:02)
[2017-09-21] MEDS: ONDANSETRON ODT 4 MG PO PRN (18:04)
[2017-09-21 18:29] VITALS: BP 120/62
[2017-09-21] MEDS ORDERED: VANCOMYCIN 1,400 MG in SODIUM CHLORIDE 0.9% 250 ML IV ONE (21:00)
[2017-09-22] MEDS: ACETAMINOPHEN 325 MG TABLET PO PRN ×2 (00:49→06:19)
[2017-09-22] MEDS: GUAIFENESIN/DM 200-20MG, 10ML UDC PO PRN ×2 (00:49→06:19)
[2017-09-22 01:39] VITALS: BP 98/53
[2017-09-22] MEDS: PIPERACILLIN/TAZO/PMX 2.25GM 50 ML IVPB SCH ×3 (04:03→20:13)
[2017-09-22 05:21] LABS: BASOPHILS # (AUTO) 0.03 x10^3/uL (0-0.1); BASOPHILS % (AUTO) 1 % (0-1); EOSINOPHILS # (AUTO) 0.52 x10^3/uL (0-0.4); EOSINOPHILS % (AUTO) 11 % (1-7); LYMPHOCYTES % (AUTO) 8 % (22-44); MD NO; MEAN CORPUSCULAR HEMOGLOBIN 30.7 pg (27.5-34.5); MEAN CORPUSCULAR HGB CONC 32.7 g/dL (33.2-36.2); MEAN CORPUSCULAR VOLUME 93.9 fL (81-97); MEAN PLATELET VOLUME 7.4 fL (7.4-10.4); MONOCYTES # (AUTO) 0.66 x10^3/uL (0.2-0.8); MONOCYTES % (AUTO) 14 % (2-9); NEUTROPHILS # (AUTO) 3.11 x10^3/uL (1.8-6.8); NEUTROPHILS % (AUTO) 66 % (42-75); PLATELET COUNT 163 x10^3/uL (130-400); RED BLOOD COUNT 2.86 x10^6/uL (4.38-5.82); RED CELL DISTRIBUTION WIDTH 17.8 % (9.4-14.8)
[2017-09-22 05:33] LABS: CHLORIDE 101 mmol/L (98-107)
[2017-09-22 05:45] LABS: ANION GAP 9 mmol/L (5-15); CALCIUM 9.7 mg/dL (8.5-10.1); CREATININE 7.36 mg/dL (0.7-1.3)
[2017-09-22] MEDS: LEVOTHYROXINE 88 MCG TABLET PO SCH (06:19)
[2017-09-22] MEDS: GUAIFENESIN 200 MG TABLET PO SCH ×4 (06:19→20:13)
[2017-09-22 06:49] VITALS: BP 123/63
[2017-09-22] MEDS: [UNRECOGNIZED DRUG - OTHER] PO SCH (09:00)
[2017-09-22] MEDS: IRON SUCROSE COMPLEX 100MG/5ML IV SCH (09:13)
[2017-09-22] MEDS: AMIODARONE 200 MG TABLET PO SCH (09:15)
[2017-09-22] MEDS: ALLOPURINOL 100 MG TABLET PO SCH (09:15)
[2017-09-22] MEDS: OMEPRAZOLE 20 MG CAPSULE.DR PO SCH (09:15)
[2017-09-22] MEDS: TAMSULOSIN 0.4 MG CAP.ER.24H PO SCH (09:15)
[2017-09-22] MEDS: CLOPIDOGREL 75 MG TABLET PO SCH (09:16)
[2017-09-22] MEDS: URSODIOL 300 MG CAPSULE PO SCH ×2 (09:16→20:13)
[2017-09-22] MEDS: MULTIVITAMIN 1 TABLET PO SCH (09:16)
[2017-09-22 10:22] LABS: INTERNATIONAL NORMALIZED RATIO 2.98 (0.93-1.1); PROTHROMBIN TIME 30.3 Seconds (9.6-11.5)
[2017-09-22 12:57] VITALS: BP 134/67
[2017-09-22] MEDS: ONDANSETRON ODT 4 MG PO PRN (17:46)
[2017-09-22] MEDS ORDERED: WARFARIN 2 MG TABLET PO-COUM ONE (18:00)
[2017-09-22 19:25] VITALS: BP 112/62
[2017-09-22] MEDS ORDERED: GUAIFENESIN/COD200MG-20MG/10ML LIQUID PO SCH (21:00)
[2017-09-23 00:30] VITALS: BP 123/68
[2017-09-23] MEDS: PIPERACILLIN/TAZO/PMX 2.25GM 50 ML IVPB SCH ×2 (04:15→12:09)
[2017-09-23] MEDS: GUAIFENESIN 200 MG TABLET PO SCH ×4 (05:59→21:23)
[2017-09-23] MEDS: LEVOTHYROXINE 88 MCG TABLET PO SCH (05:59)
[2017-09-23 06:08] LABS: INTERNATIONAL NORMALIZED RATIO 2.97 (0.93-1.1); PROTHROMBIN TIME 30.2 Seconds (9.6-11.5)
[2017-09-23 06:19] LABS: CHLORIDE 103 mmol/L (98-107)
[2017-09-23 06:28] LABS: ALBUMIN 1.9 g/dL (3.4-5.0); ANION GAP 6 mmol/L (5-15); CALCIUM 9.6 mg/dL (8.5-10.1); CREATININE 7.25 mg/dL (0.7-1.3); VANCOMYCIN,RANDOM 27.6 mcg/mL
[2017-09-23 08:38] VITALS: BP 131/71
[2017-09-23] MEDS: [UNRECOGNIZED DRUG - OTHER] PO SCH (09:41)
[2017-09-23] MEDS: ALLOPURINOL 100 MG TABLET PO SCH (09:41)
[2017-09-23] MEDS: IRON SUCROSE COMPLEX 100MG/5ML IV SCH (09:41)
[2017-09-23] MEDS: OMEPRAZOLE 20 MG CAPSULE.DR PO SCH (09:41)
[2017-09-23] MEDS: AMIODARONE 200 MG TABLET PO SCH (09:41)
[2017-09-23] MEDS: CLOPIDOGREL 75 MG TABLET PO SCH (09:41)
[2017-09-23] MEDS: TAMSULOSIN 0.4 MG CAP.ER.24H PO SCH (09:41)
[2017-09-23] MEDS: URSODIOL 300 MG CAPSULE PO SCH ×2 (09:41→21:23)
[2017-09-23] MEDS: MULTIVITAMIN 1 TABLET PO SCH (09:41)
[2017-09-23] MEDS ORDERED: ALBUTEROL SULFATE 2.5 MG/3 ML NPPB PRN (10:30)
[2017-09-23] MEDS ORDERED: ALBUTEROL SULFATE 2.5 MG/3 ML ONE (10:32)
[2017-09-23] MEDS ORDERED: CEFTRIAXONE 1,000 MG in SODIUM CHLORIDE 0.9% 50 ML IV SCH (13:00)
[2017-09-23 14:04] VITALS: BP 121/62
[2017-09-23] MEDS: CEFTRIAXONE PMX 1GM/50ML 50 ML IV SCH (14:06)
[2017-09-23] MEDS: ALBUTEROL SULFATE 2.5 MG/3 ML NPPB SCH ×2 (15:05→20:22)
[2017-09-23] MEDS: DOXYCYCLINE 100 MG in DEXTROSE 5% 250 ML IV SCH (15:21)
[2017-09-23] MEDS ORDERED: WARFARIN 2 MG TABLET PO-COUM ONE (18:00)
[2017-09-23] MEDS ORDERED: WARFARIN 5 MG TABLET PO-COUM SCH (18:00)
[2017-09-23 20:01] VITALS: BP 138/68
[2017-09-24 00:35] VITALS: BP 126/64
[2017-09-24] MEDS: DOXYCYCLINE 100 MG in DEXTROSE 5% 250 ML IV SCH ×2 (02:43→14:30)
[2017-09-24 05:00] LABS: INTERNATIONAL NORMALIZED RATIO 2.93 (0.93-1.1); PROTHROMBIN TIME 29.8 Seconds (9.6-11.5)
[2017-09-24 05:01] LABS: BASOPHILS # (AUTO) 0.02 x10^3/uL (0-0.1); BASOPHILS % (AUTO) 0 % (0-1); EOSINOPHILS # (AUTO) 0.58 x10^3/uL (0-0.4); EOSINOPHILS % (AUTO) 13 % (1-7); LYMPHOCYTES # (AUTO) 0.55 x10^3/uL (1-3.4); LYMPHOCYTES % (AUTO) 12 % (22-44); MD NO; MEAN CORPUSCULAR HEMOGLOBIN 30.9 pg (27.5-34.5); MEAN CORPUSCULAR HGB CONC 33.1 g/dL (33.2-36.2); MEAN CORPUSCULAR VOLUME 93.3 fL (81-97); MEAN PLATELET VOLUME 6.9 fL (7.4-10.4); MONOCYTES # (AUTO) 0.51 x10^3/uL (0.2-0.8); MONOCYTES % (AUTO) 11 % (2-9); NEUTROPHILS % (AUTO) 64 % (42-75); PLATELET COUNT 189 x10^3/uL (130-400); RED BLOOD COUNT 2.91 x10^6/uL (4.38-5.82); RED CELL DISTRIBUTION WIDTH 17.6 % (9.4-14.8)
[2017-09-24 05:06] LABS: ANION GAP 8 mmol/L (5-15); CALCIUM 9.3 mg/dL (8.5-10.1); CHLORIDE 103 mmol/L (98-107)
[2017-09-24 05:09] LABS: ALANINE AMINOTRANSFERASE 18 U/L (12-78); ALKALINE PHOSPHATASE 60 U/L (45-117); BILIRUBIN,TOTAL 0.7 mg/dL (0.2-1.0); CREATININE 7.19 mg/dL (0.7-1.3); TOTAL PROTEIN 6.2 g/dL (6.4-8.2)
[2017-09-24] MEDS: GUAIFENESIN 200 MG TABLET PO SCH ×4 (05:46→20:52)
[2017-09-24] MEDS: LEVOTHYROXINE 88 MCG TABLET PO SCH (05:48)
[2017-09-24 06:42] VITALS: BP 118/60
[2017-09-24] MEDS: ALBUTEROL SULFATE 2.5 MG/3 ML NPPB SCH ×4 (07:00→20:00)
[2017-09-24] MEDS: IRON SUCROSE COMPLEX 100MG/5ML IV SCH (08:36)
[2017-09-24] MEDS: [UNRECOGNIZED DRUG - OTHER] PO SCH (08:37)
[2017-09-24] MEDS: URSODIOL 300 MG CAPSULE PO SCH ×2 (08:45→20:52)
[2017-09-24] MEDS: AMIODARONE 200 MG TABLET PO SCH (08:45)
[2017-09-24] MEDS: OMEPRAZOLE 20 MG CAPSULE.DR PO SCH (08:45)
[2017-09-24] MEDS: TAMSULOSIN 0.4 MG CAP.ER.24H PO SCH (08:46)
[2017-09-24] MEDS: MULTIVITAMIN 1 TABLET PO SCH (08:46)
[2017-09-24] MEDS: ALLOPURINOL 100 MG TABLET PO SCH (08:46)
[2017-09-24] MEDS: CLOPIDOGREL 75 MG TABLET PO SCH (08:46)
[2017-09-24 12:20] VITALS: BP 115/73
[2017-09-24] MEDS: CEFTRIAXONE PMX 1GM/50ML 50 ML IV SCH (13:11)
[2017-09-24] MEDS ORDERED: WARFARIN 2 MG TABLET PO-COUM ONE (18:00)
[2017-09-24 20:14] VITALS: BP 130/76
[2017-09-25 01:38] VITALS: BP 133/70
[2017-09-25] MEDS: DOXYCYCLINE 100 MG in DEXTROSE 5% 250 ML IV SCH (02:30)
[2017-09-25 05:28] LABS: INTERNATIONAL NORMALIZED RATIO 2.65 (0.93-1.1)
[2017-09-25 05:35] LABS: ANION GAP 7 mmol/L (5-15); CALCIUM 9.2 mg/dL (8.5-10.1); CHLORIDE 103 mmol/L (98-107)
[2017-09-25 05:37] LABS: CREATININE 7.13 mg/dL (0.7-1.3)
[2017-09-25] MEDS: LEVOTHYROXINE 88 MCG TABLET PO SCH (06:00)
[2017-09-25] MEDS: GUAIFENESIN 200 MG TABLET PO SCH ×4 (06:07→20:22)
[2017-09-25] MEDS: OMEPRAZOLE 20 MG CAPSULE.DR PO SCH (06:07)
[2017-09-25] MEDS: [UNRECOGNIZED DRUG - OTHER] PO SCH (07:09)
[2017-09-25 07:10] VITALS: BP 138/70
[2017-09-25] MEDS: ALBUTEROL SULFATE 2.5 MG/3 ML NPPB SCH ×4 (08:25→19:30)
[2017-09-25] MEDS: ALLOPURINOL 100 MG TABLET PO SCH (08:36)
[2017-09-25] MEDS: CLOPIDOGREL 75 MG TABLET PO SCH (08:36)
[2017-09-25] MEDS: URSODIOL 300 MG CAPSULE PO SCH ×2 (08:36→20:22)
[2017-09-25] MEDS: TAMSULOSIN 0.4 MG CAP.ER.24H PO SCH (08:36)
[2017-09-25] MEDS: AMIODARONE 200 MG TABLET PO SCH (08:36)
[2017-09-25] MEDS: MULTIVITAMIN 1 TABLET PO SCH (08:37)
[2017-09-25] MEDS ORDERED: GUAIFENESIN 100 MG/5 ML, 5ML UDC PO PRN (10:00)
[2017-09-25] MEDS: ONDANSETRON ODT 4 MG PO PRN ×2 (10:55→20:22)
[2017-09-25] MEDS: DOXYCYCLINE 100MG CAP PO SCH ×2 (11:37→20:22)
[2017-09-25] MEDS: CEFDINIR 300 MG CAPSULE PO SCH ×2 (11:37→20:23)
[2017-09-25 12:37] VITALS: BP 135/67
[2017-09-25] MEDS ORDERED: WARFARIN 2.5 MG TABLET PO-COUM ONE (18:00)
[2017-09-25 19:22] VITALS: BP 137/71
[2017-09-25 21:02] VITALS: BP 137/67
[2017-09-26 00:57] VITALS: BP 118/69
[2017-09-26] MEDS: GUAIFENESIN 200 MG TABLET PO SCH ×2 (05:15→11:52)
[2017-09-26] MEDS: LEVOTHYROXINE 88 MCG TABLET PO SCH (05:15)
[2017-09-26 05:35] LABS: INTERNATIONAL NORMALIZED RATIO 2.36 (0.93-1.1); PROTHROMBIN TIME 24.1 Seconds (9.6-11.5)
[2017-09-26 05:39] LABS: ALBUMIN 2.2 g/dL (3.4-5.0); ANION GAP 8 mmol/L (5-15); CALCIUM 9.3 mg/dL (8.5-10.1); CHLORIDE 104 mmol/L (98-107); CREATININE 6.99 mg/dL (0.7-1.3)
[2017-09-26 06:10] LABS: BASOPHILS # (AUTO) 0.02 x10^3/uL (0-0.1); BASOPHILS % (AUTO) 0 % (0-1); EOSINOPHILS # (AUTO) 0.56 x10^3/uL (0-0.4); EOSINOPHILS % (AUTO) 10 % (1-7); LYMPHOCYTES # (AUTO) 0.65 x10^3/uL (1-3.4); LYMPHOCYTES % (AUTO) 12 % (22-44); MD NO; MEAN CORPUSCULAR HGB CONC 33.2 g/dL (33.2-36.2); MEAN CORPUSCULAR VOLUME 93.6 fL (81-97); MONOCYTES # (AUTO) 0.51 x10^3/uL (0.2-0.8); MONOCYTES % (AUTO) 9 % (2-9); NEUTROPHILS # (AUTO) 3.76 x10^3/uL (1.8-6.8); NEUTROPHILS % (AUTO) 68 % (42-75); PLATELET COUNT 196 x10^3/uL (130-400); RED BLOOD COUNT 2.93 x10^6/uL (4.38-5.82)
[2017-09-26] MEDS: ALBUTEROL SULFATE 2.5 MG/3 ML NPPB SCH ×2 (07:25→10:34)
[2017-09-26 08:03] VITALS: BP 122/72
[2017-09-26] MEDS: [UNRECOGNIZED DRUG - OTHER] PO SCH (09:00)
[2017-09-26] MEDS ORDERED: POTASSIUM CHLORIDE 20 MEQ TAB.ER.PRT ONE (09:12)
[2017-09-26] MEDS: CEFDINIR 300 MG CAPSULE PO SCH (09:16)
[2017-09-26] MEDS: URSODIOL 300 MG CAPSULE PO SCH (09:16)
[2017-09-26] MEDS: TAMSULOSIN 0.4 MG CAP.ER.24H PO SCH (09:16)
[2017-09-26] MEDS: OMEPRAZOLE 20 MG CAPSULE.DR PO SCH (09:16)
[2017-09-26] MEDS: ALLOPURINOL 100 MG TABLET PO SCH (09:16)
[2017-09-26] MEDS: DOXYCYCLINE 100MG CAP PO SCH (09:17)
[2017-09-26] MEDS: AMIODARONE 200 MG TABLET PO SCH (09:17)
[2017-09-26] MEDS: MULTIVITAMIN 1 TABLET PO SCH (09:17)
[2017-09-26] MEDS: CLOPIDOGREL 75 MG TABLET PO SCH (09:17)
[2017-09-26] MEDS ORDERED: DOXY100C2 PO (09:19)
[2017-09-26] MEDS ORDERED: POTA20TA91 PO (09:19)
[2017-09-26] MEDS ORDERED: CEFD300C37 PO (09:19)
[2017-09-26] MEDS ORDERED: TIOT18CA INH (09:19)
[2017-09-26] MEDS ORDERED: GUAI200T3 PO (09:19)
[2017-09-26] MEDS ORDERED: POTASSIUM CHLORIDE 20 MEQ TAB.ER.PRT PO ONE (09:30)
[2017-09-26] MEDS ORDERED: WARFARIN 3 MG TABLET PO-COUM ONE (18:00)
== END 2017-09-26 14:00 | disposition home or self-care (01) | DRG 177 ==
LOC: ED 21:48 → EDIP 22:04 → 4EST 09-20 00:01 → DCLOUNGE 09-26 13:35
PROVIDERS: ADMIT Hospitalist; ATTEND Hospitalist
PROC: 3E1M39Z Irrigation of Peritoneal Cavity using Dialysate, Percutaneous Approach (ICD-10-PCS; 2017-09-20)
PROC: 3E1M39Z Irrigation of Peritoneal Cavity using Dialysate, Percutaneous Approach (ICD-10-PCS; 2017-09-21)
PROC: 3E1M39Z Irrigation of Peritoneal Cavity using Dialysate, Percutaneous Approach (ICD-10-PCS; 2017-09-22)
PROC: 3E1M39Z Irrigation of Peritoneal Cavity using Dialysate, Percutaneous Approach (ICD-10-PCS; 2017-09-23)
PROC: 3E1M39Z Irrigation of Peritoneal Cavity using Dialysate, Percutaneous Approach (ICD-10-PCS; 2017-09-24)
PROC: 3E1M39Z Irrigation of Peritoneal Cavity using Dialysate, Percutaneous Approach (ICD-10-PCS; principal; 2017-09-25)
DX: J15.212 Pneumonia due to Methicillin resistant Staphylococcus aureus (principal); J96.21 Acute and chronic respiratory failure with hypoxia; E43 Unspecified severe protein-calorie malnutrition; I13.2 Hypertensive heart and chronic kidney disease with heart failure and with stage 5 chronic kidney disease, or end stage renal disease; C78.00 Secondary malignant neoplasm of unspecified lung; C78.7 Secondary malignant neoplasm of liver and intrahepatic bile duct; D68.59 Other primary thrombophilia; E83.39 Other disorders of phosphorus metabolism; I42.9 Cardiomyopathy, unspecified; N18.6 End stage renal disease; N25.81 Secondary hyperparathyroidism of renal origin; C64.9 Malignant neoplasm of unspecified kidney, except renal pelvis; I48.1 Persistent atrial fibrillation; I50.22 Chronic systolic (congestive) heart failure; D63.8 Anemia in other chronic diseases classified elsewhere; D50.9 Iron deficiency anemia, unspecified; E03.9 Hypothyroidism, unspecified; E78.5 Hyperlipidemia, unspecified; E83.41 Hypermagnesemia; I25.10 Atherosclerotic heart disease of native coronary artery without angina pectoris; I45.10 Unspecified right bundle-branch block; K21.9 Gastro-esophageal reflux disease without esophagitis; M10.9 Gout, unspecified; N25.0 Renal osteodystrophy; N40.0 Benign prostatic hyperplasia without lower urinary tract symptoms; Y95 Nosocomial condition; Z66 Do not resuscitate; Z79.01 Long term (current) use of anticoagulants; Z85.528 Personal history of other malignant neoplasm of kidney; Z87.891 Personal history of nicotine dependence; Z90.5 Acquired absence of kidney; Z95.5 Presence of coronary angioplasty implant and graft; Z99.2 Dependence on renal dialysis; Z99.81 Dependence on supplemental oxygen; Z68.27 Body mass index [BMI] 27.0-27.9, adult; R91.1 Solitary pulmonary nodule
CPT/HCPCS: 36415; 71250; 80048; 80053; 80069; 80202; 81001; 82306; 82330; 83605; 83735; 83880; 83970; 84100; 84145; 84484; 85025; 85610; 87040; 87070; 87205; 93005; 94640; 96365; 96366; 99285; J0696; J1756; J2543; J3370; J7060; J7613; Q0162; J7030; J7050

== ENCOUNTER 2017-09-27 23:25 | Emergency (ER) | payer MEDICARE ==
[~2017-09-27] VITALS: Ht 180.3 cm; Wt 87.7 kg
[~2017-09-27 23:25] MED LIST changes: +CEFD300C37 PO; +DOXY100C2 PO; +GUAI200T3 PO; +POTA20TA91 PO; +TIOT18CA INH
[2017-09-28] MEDS ORDERED: OXYMETAZOLINE NASAL SPRAY 0.05%, 15ML ONE (00:05)
[2017-09-28 00:47] LABS: INTERNATIONAL NORMALIZED RATIO 1.92 (0.93-1.1); PROTHROMBIN TIME 19.7 Seconds (9.6-11.5)
[2017-09-28] MEDS ORDERED: TRANEXAMIC ACID 100 MG/ML, 10ML ONE (00:49)
[2017-09-28] MEDS ORDERED: LIDOCAINE-MPF 2% ,5ML ONE (00:49)
[2017-09-28] MEDS ORDERED: LIDOCAINE GEL 2%, 5ML ONE (00:50)
[2017-09-28] MEDS ORDERED: BACITRACIN ZINC OINT 500U/GM, 0.9 GM ONE (02:02)
[2017-09-28 02:26] VITALS: BP 140/67
== END 2017-09-28 02:46 | disposition home or self-care (01) ==
LOC: ED 23:59
DX: R04.0 Epistaxis (principal); I25.10 Atherosclerotic heart disease of native coronary artery without angina pectoris; K21.9 Gastro-esophageal reflux disease without esophagitis; I50.9 Heart failure, unspecified; I12.0 Hypertensive chronic kidney disease with stage 5 chronic kidney disease or end stage renal disease; N18.6 End stage renal disease; N17.9 Acute kidney failure, unspecified; Z99.2 Dependence on renal dialysis; Z79.01 Long term (current) use of anticoagulants; Z95.5 Presence of coronary angioplasty implant and graft
CPT/HCPCS: 30901; 36415; 85610; 99284

== ENCOUNTER → 2017-11-30 | Outpatient (CLI) | payer MEDICARE | END | disposition home or self-care (01) | LOC: CFH 15:58 | PROVIDERS: ATTEND Nurse Practitioner Family | DX: R91.1 Solitary pulmonary nodule (principal); J44.9 Chronic obstructive pulmonary disease, unspecified; I50.9 Heart failure, unspecified; Z85.528 Personal history of other malignant neoplasm of kidney | CPT/HCPCS: 71046 ==

== ENCOUNTER 2018-06-25 14:40 | Outpatient (CLI) | payer MEDICARE ==
[~2018-06-25 14:40] MED LIST changes: -ASPI-621 PO; +ASPI81TA45 PO; +ATOR20TA37 PO; -ATOR20TA9 PO; -MIDO5TAB PO; +MIDO5TAB9 PO; +WARF2.5T32 PO; -WARF2.5T73 PO
== END 2018-06-25 23:59 | disposition home or self-care (01) ==
LOC: CFH 14:40
PROVIDERS: ATTEND Physician Assistant
DX: R06.02 Shortness of breath (principal)
CPT/HCPCS: 71046

== ENCOUNTER 2018-07-28 17:52 | Inpatient (IN) | payer MEDICARE ==
[~2018-07-28] VITALS: Ht 180.3 cm; Wt 105.5 kg
[~2018-07-28 17:52] MED LIST changes: -HYDR1TAB12 PO; +HYDR1TAB13 PO
[2018-07-28] MEDS ORDERED: ASPIRIN 81 MG TABLET EC ONE (18:46)
[2018-07-28] MEDS ORDERED: CEFTRIAXONE PMX 1GM/50ML 50 ML ONE (18:46)
[2018-07-28 19:00] LABS: RAPID INFLUENZA A POSITIVE (Negative); RAPID INFLUENZA B Negative (Negative)
[2018-07-28] MEDS ORDERED: ASPIRIN 81 MG TABLET EC PO ONE (19:00)
[2018-07-28] MEDS ORDERED: SODIUM CHLORIDE FLUSH 10ML SYR IVF ONE (19:00)
[2018-07-28] MEDS ORDERED: CEFTRIAXONE PMX 1GM/50ML 50 ML IVPB ONE (19:00)
[2018-07-28] MEDS ORDERED: [UNRECOGNIZED DRUG - CODE] PO (19:16)
[2018-07-28] MEDS ORDERED: AMLO10TA8 PO (19:16)
[2018-07-28] MEDS ORDERED: [UNRECOGNIZED DRUG - CODE] PO (19:16)
[2018-07-28] MEDS ORDERED: FERR324T5 PO (19:16)
[2018-07-28] MEDS ORDERED: TURM1POW PO (19:16)
[2018-07-28] MEDS ORDERED: ONDA4TAB7 PO (19:16)
[2018-07-28] MEDS ORDERED: ASCO10004 PO (19:16)
[2018-07-28] MEDS ORDERED: FOLI0.8T33 PO (19:16)
[2018-07-28] MEDS ORDERED: SEVE800T8 PO (19:16)
[2018-07-28] MEDS ORDERED: UMEC1DIS INH (19:16)
[2018-07-28] MEDS ORDERED: DOCU-131 PO (19:16)
[2018-07-28] MEDS ORDERED: OXYC1TAB7 PO (19:16)
[2018-07-28] MEDS ORDERED: MAGN400T36 PO (19:16)
[2018-07-28] MEDS ORDERED: CODE118S4 PO (19:18)
[2018-07-28] MEDS ORDERED: GUAI1TBM11 PO (19:18)
--- NOTE | 2018-07-28 19:19 | NUR ---
MED REC COMPLETE. VSS. PT SLEEPING WITH AT BEDSIDE. UPDATED ON POC.
[2018-07-28] MEDS ORDERED: OSELTAMIVIR 75 MG CAPSULE ONE (19:26)
[2018-07-28 19:29] LABS: INTERNATIONAL NORMALIZED RATIO 2.03 (0.93-1.1); PROTHROMBIN TIME 20.7 Seconds (9.6-11.5)
[2018-07-28] MEDS ORDERED: OSELTAMIVIR 75 MG CAPSULE PO ONE (19:30)
[2018-07-28 19:32] LABS: ALANINE AMINOTRANSFERASE 27 U/L (12-78); ALBUMIN 3.1 g/dL (3.4-5.0); ANION GAP 11 mmol/L (5-15); CHLORIDE 107 mmol/L (98-107)
[2018-07-28 19:36] LABS: ALKALINE PHOSPHATASE 68 U/L (45-117); BILIRUBIN,TOTAL 0.4 mg/dL (0.2-1.0); TOTAL PROTEIN 6.4 g/dL (6.4-8.2)
[2018-07-28 19:37] LABS: MEAN CORPUSCULAR HEMOGLOBIN 33.8 pg (27.5-34.5); MEAN CORPUSCULAR HGB CONC 34.1 g/dL (33.2-36.2); MEAN CORPUSCULAR VOLUME 99.1 fL (81-97); MEAN PLATELET VOLUME 7.4 fL (7.4-10.4); PLATELET COUNT 99 x10^3/uL (130-400); RED BLOOD COUNT 2.88 x10^6/uL (4.38-5.82); RED CELL DISTRIBUTION WIDTH 14.1 % (9.4-14.8)
[2018-07-28 19:39] LABS: BASOPHILS # (AUTO) 0.01 x10^3/uL (0-0.1); BASOPHILS % (AUTO) 0 % (0-1); EOSINOPHILS # (AUTO) 0.03 x10^3/uL (0-0.4); EOSINOPHILS % (AUTO) 1 % (1-7); LYMPHOCYTES # (AUTO) 0.53 x10^3/uL (1-3.4); LYMPHOCYTES % (AUTO) 11 % (22-44); MD MORPH REVIEW ONLY; MONOCYTES # (AUTO) 0.58 x10^3/uL (0.2-0.8); MONOCYTES % (AUTO) 12 % (2-9); NEUTROPHILS # (AUTO) 3.57 x10^3/uL (1.8-6.8); NEUTROPHILS % (AUTO) 76 % (42-75)
[2018-07-28 19:46] LABS: <PLATELET ESTIMATE> DECREASED; <PLT MORPHOLOGY> NORMAL PLT MORPH
[2018-07-28] MEDS ORDERED: hydrALAzine 20 MG/ML, 1ML IVPush PRN (20:00)
[2018-07-28] MEDS ORDERED: NITROGLYCERIN 0.4 MG BOTTLE (25 TABS) SL PRN (20:00)
[2018-07-28] MEDS ORDERED: POLYETHYLENE GLYCOL 17 GM PACKET PO PRN (20:00)
[2018-07-28] MEDS ORDERED: ACETAMINOPHEN 325 MG TABLET PO PRN (20:00)
[2018-07-28] MEDS ORDERED: ONDANSETRON 2MG/ML, 2ML IVPush PRN (20:00)
[2018-07-28] MEDS ORDERED: NITROGLYCERIN 0.4 MG/SPRAY SL PRN (20:00)
[2018-07-28 20:30] VITALS: BP 129/90
[2018-07-28] MEDS ORDERED: WARFARIN 5 MG TABLET PO-COUM ONE (21:00)
[2018-07-28] MEDS ORDERED: CEFTRIAXONE PMX 1GM/50ML 50 ML IV SCH (21:00)
[2018-07-28] MEDS ORDERED: ALBUTEROL SULFATE 2.5 MG/3 ML ONE (21:10)
[2018-07-28] MEDS: DOXYCYCLINE 100 MG in DEXTROSE 5% 250 ML IV SCH (21:10)
[2018-07-28] MEDS: ALBUTEROL SULFATE 2.5 MG/3 ML NPPB SCH (21:15)
[2018-07-28] MEDS ORDERED: HYDROcodone/APAP 5/325 TABLET PO PRN (22:00)
[2018-07-28] MEDS: SEVELAMER CARBONATE 800MG TAB PO SCH (22:43)
[2018-07-28] MEDS: ATORVASTATIN 20 MG TABLET PO SCH (22:43)
[2018-07-28] MEDS: FERROUS SULFATE 325 MG TABLET PO SCH (22:44)
[2018-07-29 00:31] VITALS: BP 103/59
[2018-07-29 02:05] LABS: MEAN CORPUSCULAR HEMOGLOBIN 32.6 pg (27.5-34.5); MEAN CORPUSCULAR HGB CONC 32.9 g/dL (33.2-36.2); MEAN PLATELET VOLUME 7.3 fL (7.4-10.4); PLATELET COUNT 94 x10^3/uL (130-400); RED BLOOD COUNT 2.62 x10^6/uL (4.38-5.82); RED CELL DISTRIBUTION WIDTH 14.3 % (9.4-14.8)
[2018-07-29 02:11] LABS: INTERNATIONAL NORMALIZED RATIO 2.1 (0.93-1.1); PROTHROMBIN TIME 21.4 Seconds (9.6-11.5)
[2018-07-29 02:26] LABS: BASOPHILS % (AUTO) 0 % (0-1); EOSINOPHILS # (AUTO) 0.01 x10^3/uL (0-0.4); EOSINOPHILS % (AUTO) 0 % (1-7); LYMPHOCYTES # (AUTO) 0.28 x10^3/uL (1-3.4); LYMPHOCYTES % (AUTO) 8 % (22-44); MD SCAN; MONOCYTES # (AUTO) 0.56 x10^3/uL (0.2-0.8); MONOCYTES % (AUTO) 16 % (2-9); NEUTROPHILS # (AUTO) 2.75 x10^3/uL (1.8-6.8); NEUTROPHILS % (AUTO) 76 % (42-75)
[2018-07-29 02:42] LABS: ANION GAP 12 mmol/L (5-15); CALCIUM 7.7 mg/dL (8.5-10.1); CHLORIDE 106 mmol/L (98-107)
[2018-07-29] MEDS: OMEPRAZOLE 20 MG CAPSULE.DR PO SCH (05:54)
[2018-07-29] MEDS: ASPIRIN 325 MG TABLET EC PO SCH (05:54)
[2018-07-29] MEDS ORDERED: LEVOTHYROXINE 88 MCG TABLET PO SCH (07:30)
[2018-07-29 07:49] VITALS: BP 95/48
[2018-07-29] MEDS: SEVELAMER CARBONATE 800MG TAB PO SCH ×5 (08:36→21:18)
[2018-07-29] MEDS: TORSEMIDE 20 MG TABLET PO SCH (08:38)
[2018-07-29] MEDS: CALCITRIOL 0.25 MCG CAPSULE PO SCH (08:39)
[2018-07-29] MEDS: AMLODIPINE 10 MG TAB PO SCH (08:39)
[2018-07-29] MEDS: TAMSULOSIN 0.4 MG CAP.ER.24H PO SCH (08:39)
[2018-07-29] MEDS: ALLOPURINOL 100 MG TABLET PO SCH (08:39)
[2018-07-29] MEDS: GUAIFENESIN ER 600 MG TABLET PO SCH (08:40)
[2018-07-29] MEDS: MAGNESIUM OXIDE 400 MG TABLET PO SCH (08:40)
[2018-07-29] MEDS: LACTOBACILLUS CHEW TABLET PO SCH (08:40)
[2018-07-29] MEDS: OSELTAMIVIR 75 MG CAPSULE PO SCH (08:42)
[2018-07-29] MEDS: AMIODARONE 200 MG TABLET PO SCH (08:42)
[2018-07-29] MEDS: FERROUS SULFATE 325 MG TABLET PO SCH ×2 (08:43→21:18)
[2018-07-29] MEDS: DOCUSATE 100 MG CAPSULE PO SCH (08:43)
[2018-07-29] MEDS: CLOPIDOGREL 75 MG TABLET PO SCH (08:43)
[2018-07-29] MEDS: SENNA/DOCUSATE TABLET PO SCH (08:44)
[2018-07-29] MEDS: ASCORBIC ACID 500 MG TABLET PO SCH (08:44)
[2018-07-29] MEDS: DEXTROMETHORPHAN 30 MG/5 ML ORAL SOL PO SCH (08:44)
[2018-07-29] MEDS: DOXYCYCLINE 100 MG in DEXTROSE 5% 250 ML IV SCH ×2 (08:45→21:18)
[2018-07-29] MEDS ORDERED: GUAIFENESIN PO SCH (09:00)
[2018-07-29] MEDS: BUDESONIDE 0.5 MG/2 ML INHA NPPB SCH ×2 (09:00→19:45)
[2018-07-29] MEDS ORDERED: [UNRECOGNIZED DRUG - OTHER] PO SCH (09:00)
[2018-07-29] MEDS ORDERED: DEXTROMETHORPHAN PO SCH (09:00)
[2018-07-29] MEDS ORDERED: OXYcodone/APAP 5/325MG TABLET PO SCH (09:00)
[2018-07-29] MEDS: ALBUTEROL SULFATE 2.5 MG/3 ML NPPB SCH ×3 (09:57→19:45)
[2018-07-29] MEDS ORDERED: GENTAMICIN CRM 0.1%, 30GM TP SCH (14:15)
[2018-07-29] MEDS ORDERED: OXYcodone/APAP 5/325MG TABLET PO PRN (14:30)
[2018-07-29 14:45] VITALS: BP 108/73
[2018-07-29] MEDS ORDERED: WARFARIN 3 MG TABLET PO-COUM ONE (18:00)
[2018-07-29] MEDS ORDERED: CEFTRIAXONE PMX 1GM/50ML 50 ML IV SCH (19:30)
[2018-07-29 20:42] VITALS: BP 126/70
[2018-07-29] MEDS: ATORVASTATIN 20 MG TABLET PO SCH (21:18)
[2018-07-30 03:07] VITALS: BP 106/69
[2018-07-30] MEDS ORDERED: LEVOTHYROXINE 125 MCG TABLET PO SCH (06:00)
[2018-07-30] MEDS: OMEPRAZOLE 20 MG CAPSULE.DR PO SCH (06:11)
[2018-07-30] MEDS: ASPIRIN 325 MG TABLET EC PO SCH ×2 (06:11→06:13)
[2018-07-30 06:31] LABS: INTERNATIONAL NORMALIZED RATIO 1.98 (0.93-1.1); PROTHROMBIN TIME 20.3 Seconds (9.6-11.5)
[2018-07-30 06:32] LABS: MEAN CORPUSCULAR HEMOGLOBIN 33.7 pg (27.5-34.5); MEAN CORPUSCULAR HGB CONC 34.2 g/dL (33.2-36.2); MEAN CORPUSCULAR VOLUME 98.7 fL (81-97); RED BLOOD COUNT 2.39 x10^6/uL (4.38-5.82)
[2018-07-30 06:36] LABS: ALBUMIN 2.5 g/dL (3.4-5.0); ANION GAP 13 mmol/L (5-15); CALCIUM 7.4 mg/dL (8.5-10.1); CHLORIDE 104 mmol/L (98-107)
[2018-07-30 06:44] LABS: % IRON SATURATION 15 % (20-55); ALANINE AMINOTRANSFERASE 26 U/L (12-78); ALKALINE PHOSPHATASE 55 U/L (45-117); BILIRUBIN,TOTAL 0.5 mg/dL (0.2-1.0); IRON LEVEL 22 mcg/dL (65-175); TOTAL IRON BINDING CAPACITY 145 mcg/dL (250-450); TOTAL PROTEIN 5.4 g/dL (6.4-8.2)
[2018-07-30] MEDS: ALBUTEROL SULFATE 2.5 MG/3 ML NPPB SCH ×2 (07:00→10:47)
[2018-07-30 07:38] VITALS: BP 104/58
[2018-07-30 07:39] LABS: BASOPHILS % (AUTO) 0 % (0-1); EOSINOPHILS # (AUTO) 0.14 x10^3/uL (0-0.4); EOSINOPHILS % (AUTO) 5 % (1-7); LYMPHOCYTES # (AUTO) 0.42 x10^3/uL (1-3.4); LYMPHOCYTES % (AUTO) 14 % (22-44); MD SCAN; MEAN PLATELET VOLUME 7.5 fL (7.4-10.4); MONOCYTES # (AUTO) 0.46 x10^3/uL (0.2-0.8); MONOCYTES % (AUTO) 15 % (2-9); NEUTROPHILS # (AUTO) 1.93 x10^3/uL (1.8-6.8); NEUTROPHILS % (AUTO) 65 % (42-75); PLATELET COUNT 80 x10^3/uL (130-400)
[2018-07-30] MEDS: LACTOBACILLUS CHEW TABLET PO SCH (07:51)
[2018-07-30] MEDS: ASCORBIC ACID 500 MG TABLET PO SCH (07:51)
[2018-07-30] MEDS: TORSEMIDE 20 MG TABLET PO SCH (07:51)
[2018-07-30] MEDS: GUAIFENESIN ER 600 MG TABLET PO SCH (07:51)
[2018-07-30] MEDS: CALCITRIOL 0.25 MCG CAPSULE PO SCH (07:51)
[2018-07-30] MEDS: SEVELAMER CARBONATE 800MG TAB PO SCH ×2 (07:51→12:27)
[2018-07-30] MEDS: CLOPIDOGREL 75 MG TABLET PO SCH (07:51)
[2018-07-30] MEDS: AMLODIPINE 10 MG TAB PO SCH (07:52)
[2018-07-30] MEDS: DOXYCYCLINE 100 MG in DEXTROSE 5% 250 ML IV SCH (07:52)
[2018-07-30] MEDS: FERROUS SULFATE 325 MG TABLET PO SCH (07:52)
[2018-07-30] MEDS: OSELTAMIVIR 75 MG CAPSULE PO SCH (07:52)
[2018-07-30] MEDS: AMIODARONE 200 MG TABLET PO SCH (07:52)
[2018-07-30] MEDS: TAMSULOSIN 0.4 MG CAP.ER.24H PO SCH (07:52)
[2018-07-30] MEDS: ALLOPURINOL 100 MG TABLET PO SCH (07:52)
[2018-07-30] MEDS: MAGNESIUM OXIDE 400 MG TABLET PO SCH (07:52)
[2018-07-30] MEDS: DOCUSATE 100 MG CAPSULE PO SCH (07:59)
[2018-07-30] MEDS: SENNA/DOCUSATE TABLET PO SCH (07:59)
[2018-07-30] MEDS: DEXTROMETHORPHAN 30 MG/5 ML ORAL SOL PO SCH (08:09)
[2018-07-30] MEDS: BUDESONIDE 0.5 MG/2 ML INHA NPPB SCH (09:00)
[2018-07-30] MEDS ORDERED: GENTAMICIN 0.1% TP SCH (09:00)
[2018-07-30 12:40] VITALS: BP 92/55
[2018-07-30] MEDS ORDERED: OSEL75CA PO ×3 (13:46→16:54)
[2018-07-30] MEDS ORDERED: DOXY100T PO (13:46)
[2018-07-30] MEDS ORDERED: GENT15CR6 TP (13:46)
[2018-07-30] MEDS ORDERED: CEFD300C37 PO (13:46)
[2018-07-30] MEDS ORDERED: CARV3.1212 PO (13:46)
[2018-07-30] MEDS ORDERED: CARVEDILOL 3.125 MG TABLET PO SCH (18:00)
[2018-07-30] MEDS ORDERED: WARFARIN 2 MG TABLET PO-COUM ONE (18:00)
[2018-07-31] MEDS ORDERED: OSELTAMIVIR 30 MG CAPSULE PO SCH (09:00)
[2018-08-01] MEDS ORDERED: ERGOCALCIFEROL 50,000 UNIT CAPSULE PO SCH (09:00)
== END 2018-07-30 15:20 | disposition home or self-care (01) | DRG 871 ==
LOC: ED 18:46 → EDIP 20:22 → 4EST 20:30
PROVIDERS: ADMIT Family Medicine; ATTEND Family Medicine
PROC: 3E1M39Z Irrigation of Peritoneal Cavity using Dialysate, Percutaneous Approach (ICD-10-PCS; principal; 2018-07-28)
PROC: 3E1M39Z Irrigation of Peritoneal Cavity using Dialysate, Percutaneous Approach (ICD-10-PCS; 2018-07-29)
DX: A41.9 Sepsis, unspecified organism (principal); J96.20 Acute and chronic respiratory failure, unspecified whether with hypoxia or hypercapnia; N18.6 End stage renal disease; J10.08 Influenza due to other identified influenza virus with other specified pneumonia; J12.9 Viral pneumonia, unspecified; C64.9 Malignant neoplasm of unspecified kidney, except renal pelvis; C78.00 Secondary malignant neoplasm of unspecified lung; C78.7 Secondary malignant neoplasm of liver and intrahepatic bile duct; D68.69 Other thrombophilia; I13.2 Hypertensive heart and chronic kidney disease with heart failure and with stage 5 chronic kidney disease, or end stage renal disease; I50.40 Unspecified combined systolic (congestive) and diastolic (congestive) heart failure; J44.0 Chronic obstructive pulmonary disease with (acute) lower respiratory infection; D64.9 Anemia, unspecified; E03.9 Hypothyroidism, unspecified; E78.5 Hyperlipidemia, unspecified; G89.29 Other chronic pain; I25.10 Atherosclerotic heart disease of native coronary artery without angina pectoris; I48.0 Paroxysmal atrial fibrillation; I77.810 Thoracic aortic ectasia; M10.9 Gout, unspecified; K21.9 Gastro-esophageal reflux disease without esophagitis; N25.0 Renal osteodystrophy; N40.0 Benign prostatic hyperplasia without lower urinary tract symptoms; Z79.01 Long term (current) use of anticoagulants; I25.2 Old myocardial infarction; Z79.891 Long term (current) use of opiate analgesic; Z85.528 Personal history of other malignant neoplasm of kidney; Z87.891 Personal history of nicotine dependence; Z90.5 Acquired absence of kidney; Z95.5 Presence of coronary angioplasty implant and graft; Z99.2 Dependence on renal dialysis; Z99.81 Dependence on supplemental oxygen; Z90.49 Acquired absence of other specified parts of digestive tract
CPT/HCPCS: 36415; 71045; 80048; 80053; 82306; 82728; 83540; 83550; 83605; 83735; 83970; 84100; 84484; 84550; 85025; 85610; 86705; 86706; 86803; 87040; 87070; 87205; 87340; 87400; 89051; 93005; 93306; 94640; 96374; 99285; G0378; J0696; J7060; J7613; J7626

== ENCOUNTER → 2019-09-06 | Outpatient (CLI) | payer MEDICARE ==
[~2019-09-06] MED LIST changes: -ACET-1757 PO; +ACET-2065 PO; +AMINOPHYLLINE 25 MG/ML, 10ML ONE; +AMLO10TA8 PO; +ARFO15VI INH; +ASCO10004 PO; +CARV3.1212 PO; +CODE118S4 PO; +DIPH25CA61 PO; +DOCU-131 PO; +DOXY100T PO; +FERR324T5 PO; -FLUT16SP NS; +FLUT16SP24 NS; +FOLI0.8T33 PO; +GENT15CR6 TP; +GUAI1TBM11 PO; -GUAI200T3 PO; +GUAI200T37 PO; +MAGN400T36 PO; +OSEL75CA26 PO; +OXYC1TAB7 PO; +REGADENOSON 0.4 MG/5 ML SYRINGE ONE; +REVE175V INH; +SEVE800T8 PO; +TURM1POW PO; +UMEC1DIS INH; +[UNRECOGNIZED DRUG - CODE] PO; +[UNRECOGNIZED DRUG - CODE] PO
== END | disposition home or self-care (01) ==
LOC: CFH 12:10
PROVIDERS: ATTEND Internal Medicine Cardiovascular Disease
DX: I42.9 Cardiomyopathy, unspecified (principal); R06.02 Shortness of breath; I45.19 Other right bundle-branch block; I44.0 Atrioventricular block, first degree
CPT/HCPCS: 78452; 93017; A9502; J0280; J2785

== ENCOUNTER 2019-12-15 16:02 | Inpatient (IN) | payer MEDICARE ==
[~2019-12-15] VITALS: Ht 180.3 cm; Wt 102.4 kg
[~2019-12-15 16:02] MED LIST changes: +AFRIN INH; -AMINOPHYLLINE 25 MG/ML, 10ML ONE; +AMIO100T4 PO; +CLOP75TA52 PO; +MEGE40TA3 PO; +MIDO2.5T PO; +MIRCERA INJ; +MULT-449 PO; -MULT1TAB60 PO; +POLY17PO5 PO; -REGADENOSON 0.4 MG/5 ML SYRINGE ONE; -WARF5TAB PO; +WARF5TAB2 PO
[2019-12-15] MEDS ORDERED: SODIUM CHLORIDE 0.9% 1,000ML IVBOLUS ONE (16:30)
[2019-12-15] MEDS ORDERED: SODIUM CHLORIDE 0.9% 1,000 ML IV ONE (16:33)
[2019-12-15] MEDS ORDERED: FLUD0.1T PO (16:43)
[2019-12-15] MEDS ORDERED: ATOR10TA9 PO (16:43)
[2019-12-15] MEDS ORDERED: MIDO5TAB9 PO (16:43)
--- NOTE | 2019-12-15 16:58 | NUR ---
PIV PLACED, LABS DRAWN AND COLLECTED BY QUITLINE COUNSELOR. IVF RUNNING PER JUN. PT RESTING COMFORTABLY ON GURNEY. AT BEDSIDE.
[2019-12-15 17:09] LABS: ALBUMIN 2.9 g/dL (3.4-5.0); ANION GAP 14 mmol/L (5-15); CALCIUM 8.7 mg/dL (8.5-10.1); CHLORIDE 95 mmol/L (98-107)
[2019-12-15 17:15] LABS: TROPONIN I < 0.015 ng/mL (0.000-0.045)
[2019-12-15 17:32] LABS: MEAN CORPUSCULAR HEMOGLOBIN 32.7 pg (27.5-34.5); MEAN CORPUSCULAR HGB CONC 32.2 g/dL (33.2-36.2); MEAN CORPUSCULAR VOLUME 101.7 fL (81-97); MEAN PLATELET VOLUME 6.8 fL (7.4-10.4); PLATELET COUNT 113 x10^3/uL (130-400); RED BLOOD COUNT 2.69 x10^6/uL (4.38-5.82); RED CELL DISTRIBUTION WIDTH 16.7 % (9.4-14.8)
[2019-12-15 17:36] LABS: BASOPHILS # (AUTO) 0.04 x10^3/uL (0-0.1); BASOPHILS % (AUTO) 1 % (0-1); EOSINOPHILS # (AUTO) 0.14 x10^3/uL (0-0.4); EOSINOPHILS % (AUTO) 2 % (1-7); LYMPHOCYTES # (AUTO) 0.78 x10^3/uL (1-3.4); LYMPHOCYTES % (AUTO) 13 % (22-44); MD SCAN; MONOCYTES # (AUTO) 0.68 x10^3/uL (0.2-0.8); MONOCYTES % (AUTO) 12 % (2-9); NEUTROPHILS # (AUTO) 4.24 x10^3/uL (1.8-6.8); NEUTROPHILS % (AUTO) 72 % (42-75)
--- NOTE | 2019-12-15 17:36 | NUR ---
ALL RESULTS ARE BACK AT THIS TIME. CHART UP FOR RECHECK.
--- NOTE | 2019-12-15 17:47 | NUR ---
PT TO BE ADMITTED
[2019-12-15] MEDS ORDERED: SODIUM CHLORIDE FLUSH 10ML SYR IVF PRN (18:30)
[2019-12-15] MEDS ORDERED: MEGESTROL 40MG TABLET PO PRN (18:30)
--- NOTE | 2019-12-15 18:57 | NUR ---
TASK RN: PT RESTING IN SERJIO RUBI NOTED. BP WNL. IVF RUNNING PER ORDER. PT DENIES PAIN/NEED FOR PAIN MEDICATIONS.
[2019-12-15] MEDS ORDERED: ACETAMINOPHEN 325 MG TABLET PO PRN (19:00)
[2019-12-15] MEDS ORDERED: FLUDROCORTISONE 0.1 MG TABLET PO SCH (19:00)
[2019-12-15 19:15] LABS: TROPONIN I < 0.015 ng/mL (0.000-0.045)
[2019-12-15 19:17] LABS: INTERNATIONAL NORMALIZED RATIO 1.82 (0.93-1.1); PROTHROMBIN TIME 18.9 Seconds (9.6-11.5)
--- NOTE | 2019-12-15 20:11 | NUR ---
REPORT GIVEN TO JOHN SCOTT.
[2019-12-15] MEDS: FLUDROCORTISONE 0.1 MG TABLET PO SCH ×2 (21:00→23:01)
[2019-12-15] MEDS ORDERED: SEVELAMER CARBONATE 800MG TAB PO SCH (21:00)
[2019-12-15] MEDS ORDERED: ARFORMOTEROL TARTRATE 15 MCG/2 ML HOMEINH SCH (21:00)
[2019-12-15] MEDS: ATORVASTATIN 10 MG TABLET PO SCH (21:00)
[2019-12-15] MEDS ORDERED: WARFARIN 5 MG TABLET PO-COUM ONE (21:30)
[2019-12-15] MEDS: MIDODRINE 5 MG TABLET PO SCH (23:00)
[2019-12-15] MEDS: HYDROCORTISONE 100 MG INJ. IVPush SCH (23:00)
[2019-12-15] MEDS: ARFORMOTEROL TARTRATE 15 MCG/2 ML HOMEINH SCH (23:02)
[2019-12-15 23:13] VITALS: BP 134/66
[2019-12-15] MEDS: HYDROCORTISONE 5 MG TABLET PO SCH (23:40)
[2019-12-16] VITALS (7 sets, daily range): BP systolic 70–112; BP diastolic 48–72
[2019-12-16 01:27] LABS: TROPONIN I < 0.015 ng/mL (0.000-0.045)
[2019-12-16 04:55] LABS: ALBUMIN 2.5 g/dL (3.4-5.0); ANION GAP 12 mmol/L (5-15); CALCIUM 8.2 mg/dL (8.5-10.1); CHLORIDE 97 mmol/L (98-107)
[2019-12-16 05:03] LABS: % IRON SATURATION 34 % (20-55); ALANINE AMINOTRANSFERASE 19 U/L (12-78); ALKALINE PHOSPHATASE 74 U/L (45-117); BILIRUBIN,TOTAL 0.4 mg/dL (0.2-1.0); IRON LEVEL 71 mcg/dL (65-175); TOTAL IRON BINDING CAPACITY 210 mcg/dL (250-450); TOTAL PROTEIN 5.4 g/dL (6.4-8.2)
[2019-12-16 05:05] LABS: INTERNATIONAL NORMALIZED RATIO 1.87 (0.93-1.1); PROTHROMBIN TIME 19.4 Seconds (9.6-11.5)
[2019-12-16 05:49] LABS: BASOPHILS # (AUTO) 0.01 x10^3/uL (0-0.1); BASOPHILS % (AUTO) 0 % (0-1); EOSINOPHILS # (AUTO) 0.06 x10^3/uL (0-0.4); EOSINOPHILS % (AUTO) 1 % (1-7); LYMPHOCYTES # (AUTO) 0.47 x10^3/uL (1-3.4); LYMPHOCYTES % (AUTO) 9 % (22-44); MD SCAN; MEAN CORPUSCULAR HEMOGLOBIN 33.7 pg (27.5-34.5); MEAN CORPUSCULAR HGB CONC 33.1 g/dL (33.2-36.2); MEAN CORPUSCULAR VOLUME 101.7 fL (81-97); MEAN PLATELET VOLUME 7.2 fL (7.4-10.4); MONOCYTES # (AUTO) 0.28 x10^3/uL (0.2-0.8); MONOCYTES % (AUTO) 5 % (2-9); NEUTROPHILS # (AUTO) 4.36 x10^3/uL (1.8-6.8); NEUTROPHILS % (AUTO) 84 % (42-75); PLATELET COUNT 93 x10^3/uL (130-400); RED BLOOD COUNT 2.35 x10^6/uL (4.38-5.82); RED CELL DISTRIBUTION WIDTH 17.8 % (9.4-14.8)
[2019-12-16] MEDS: LEVOTHYROXINE 125 MCG TABLET PO SCH (05:56)
[2019-12-16] MEDS: OMEPRAZOLE 20 MG CAPSULE.DR PO SCH (05:56)
[2019-12-16] MEDS: HYDROCORTISONE 100 MG INJ. IVPush SCH (06:38)
[2019-12-16] MEDS: HYDROCORTISONE 5 MG TABLET PO SCH (06:38)
[2019-12-16] MEDS: SEVELAMER CARBONATE 800MG TAB PO SCH ×3 (07:30→16:28)
[2019-12-16] MEDS ORDERED: SEVELAMER CARBONATE 800MG TAB PO PRN (07:30)
[2019-12-16] MEDS: FLUDROCORTISONE 0.1 MG TABLET PO SCH ×2 (08:42→21:15)
[2019-12-16] MEDS: ALLOPURINOL 100 MG TABLET PO SCH (08:44)
[2019-12-16] MEDS: MIDODRINE 5 MG TABLET PO SCH ×3 (08:44→21:00)
[2019-12-16] MEDS: FERROUS SULFATE 325 MG TABLET PO SCH (08:44)
[2019-12-16] MEDS: OXYcodone/APAP 5/325MG TABLET PO SCH (08:45)
[2019-12-16] MEDS: CALCITRIOL 0.25 MCG CAPSULE PO SCH (08:46)
[2019-12-16] MEDS: AMIODARONE 200 MG TABLET PO SCH (08:46)
[2019-12-16] MEDS ORDERED: ERGOCALCIFEROL 50,000 UNIT CAPSULE PO SCH (09:00)
[2019-12-16] MEDS ORDERED: WARFARIN 5 MG TABLET PO-COUM SCH (09:00)
[2019-12-16] MEDS ORDERED: FLUDROCORTISONE 0.1 MG TABLET PO SCH (09:00)
[2019-12-16] MEDS ORDERED: ARFORMOTEROL HOMEINH ONE (12:30)
[2019-12-16] MEDS: CLOPIDOGREL 75 MG TABLET PO SCH (13:15)
[2019-12-16] MEDS: TAMSULOSIN 0.4 MG CAP.ER.24H PO SCH (13:15)
[2019-12-16] MEDS ORDERED: POLYETHYLENE GLYCOL 17 GM PACKET PO PRN (16:30)
[2019-12-16] MEDS ORDERED: WARFARIN 5 MG TABLET PO-COUM ONE (18:00)
[2019-12-16] MEDS: ARFORMOTEROL TARTRATE 15 MCG/2 ML HOMEINH SCH (19:27)
[2019-12-16] MEDS: ATORVASTATIN 10 MG TABLET PO SCH (21:15)
[2019-12-16] MEDS ORDERED: GENTAMICIN CRM 0.1%, 30GM TP SCH (22:00)
[2019-12-17 01:37] VITALS: BP 87/53
[2019-12-17 05:03] LABS: INTERNATIONAL NORMALIZED RATIO 2.09 (0.93-1.1); PROTHROMBIN TIME 21.7 Seconds (9.6-11.5)
[2019-12-17 05:05] LABS: MEAN CORPUSCULAR HEMOGLOBIN 33.2 pg (27.5-34.5); MEAN CORPUSCULAR HGB CONC 32.6 g/dL (33.2-36.2); MEAN CORPUSCULAR VOLUME 101.9 fL (81-97); RED BLOOD COUNT 2.31 x10^6/uL (4.38-5.82); RED CELL DISTRIBUTION WIDTH 17.7 % (9.4-14.8)
[2019-12-17 05:08] LABS: ALBUMIN 2.6 g/dL (3.4-5.0); ANION GAP 12 mmol/L (5-15); CALCIUM 8.8 mg/dL (8.5-10.1); CHLORIDE 97 mmol/L (98-107)
[2019-12-17 05:11] LABS: ALANINE AMINOTRANSFERASE 17 U/L (12-78); ALKALINE PHOSPHATASE 74 U/L (45-117); BILIRUBIN,TOTAL 0.4 mg/dL (0.2-1.0); TOTAL PROTEIN 5.1 g/dL (6.4-8.2)
[2019-12-17 05:53] LABS: BASOPHILS # (AUTO) 0.02 x10^3/uL (0-0.1); BASOPHILS % (AUTO) 0 % (0-1); EOSINOPHILS # (AUTO) 0.15 x10^3/uL (0-0.4); EOSINOPHILS % (AUTO) 3 % (1-7); LYMPHOCYTES # (AUTO) 0.75 x10^3/uL (1-3.4); LYMPHOCYTES % (AUTO) 16 % (22-44); MD SCAN; MEAN PLATELET VOLUME 6.9 fL (7.4-10.4); MONOCYTES # (AUTO) 0.53 x10^3/uL (0.2-0.8); MONOCYTES % (AUTO) 11 % (2-9); NEUTROPHILS # (AUTO) 3.34 x10^3/uL (1.8-6.8); NEUTROPHILS % (AUTO) 70 % (42-75); PLATELET COUNT 96 x10^3/uL (130-400)
[2019-12-17] MEDS: LEVOTHYROXINE 125 MCG TABLET PO SCH (06:10)
[2019-12-17] MEDS: OMEPRAZOLE 20 MG CAPSULE.DR PO SCH (06:10)
[2019-12-17] MEDS: MIDODRINE 5 MG TABLET PO SCH (08:33)
[2019-12-17] MEDS: SEVELAMER CARBONATE 800MG TAB PO SCH ×2 (08:34→11:56)
[2019-12-17] MEDS: OXYcodone/APAP 5/325MG TABLET PO SCH (08:34)
[2019-12-17] MEDS: CLOPIDOGREL 75 MG TABLET PO SCH (08:34)
[2019-12-17] MEDS: FLUDROCORTISONE 0.1 MG TABLET PO SCH (08:34)
[2019-12-17] MEDS: TAMSULOSIN 0.4 MG CAP.ER.24H PO SCH (08:34)
[2019-12-17] MEDS: ALLOPURINOL 100 MG TABLET PO SCH (08:34)
[2019-12-17] MEDS: AMIODARONE 200 MG TABLET PO SCH (08:35)
[2019-12-17] MEDS: FERROUS SULFATE 325 MG TABLET PO SCH (08:35)
[2019-12-17] MEDS: ARFORMOTEROL TARTRATE 15 MCG/2 ML HOMEINH SCH (08:36)
[2019-12-17 08:57] VITALS: BP 111/69
[2019-12-17 08:58] VITALS: BP 108/67
[2019-12-17 08:59] VITALS: BP 93/62
[2019-12-17] MEDS: CALCITRIOL 0.25 MCG CAPSULE PO SCH (09:00)
[2019-12-17] MEDS ORDERED: IRON SUCROSE COMPLEX 100MG/5ML IV ONE (11:00)
[2019-12-17] MEDS ORDERED: FLUD0.1T PO (13:10)
[2019-12-17] MEDS ORDERED: MIDO5TAB9 PO (13:10)
[2019-12-17 14:20] VITALS: BP 96/60
[2019-12-17] MEDS ORDERED: POTASSIUM CHLORIDE 20 MEQ TAB.ER.PRT PO ONE (14:30)
[2019-12-17] MEDS ORDERED: WARFARIN 5 MG TABLET PO-COUM ONE (18:00)
== END 2019-12-17 15:25 | disposition home or self-care (01) | DRG 314 ==
LOC: ED 18:13 → EDIP 18:34 → 5SO 20:24
PROVIDERS: ADMIT Family Medicine; ATTEND Internal Medicine
DX: I95.89 Other hypotension (principal); N18.6 End stage renal disease; J98.11 Atelectasis; I13.2 Hypertensive heart and chronic kidney disease with heart failure and with stage 5 chronic kidney disease, or end stage renal disease; C64.9 Malignant neoplasm of unspecified kidney, except renal pelvis; I50.9 Heart failure, unspecified; D64.9 Anemia, unspecified; N25.0 Renal osteodystrophy; J44.9 Chronic obstructive pulmonary disease, unspecified; Z99.81 Dependence on supplemental oxygen; E78.5 Hyperlipidemia, unspecified; Z88.5 Allergy status to narcotic agent; Z79.01 Long term (current) use of anticoagulants; N40.0 Benign prostatic hyperplasia without lower urinary tract symptoms; Z85.528 Personal history of other malignant neoplasm of kidney; Z87.891 Personal history of nicotine dependence; I48.0 Paroxysmal atrial fibrillation; I25.10 Atherosclerotic heart disease of native coronary artery without angina pectoris; G90.9 Disorder of the autonomic nervous system, unspecified; E03.9 Hypothyroidism, unspecified; Z99.2 Dependence on renal dialysis; Z90.5 Acquired absence of kidney; Z95.5 Presence of coronary angioplasty implant and graft; R07.89 Other chest pain
CPT/HCPCS: 36415; 71046; 80048; 80053; 82040; 82306; 82533; 82728; 83540; 83550; 83735; 83970; 84100; 84443; 84484; 84550; 85025; 85610; 93005; 93306; 96360; 96361; G0378; J1756; G0365; J1720; J7030

== ENCOUNTER 2020-03-04 13:14 | Emergency (ER) | payer MEDICARE ==
[~2020-03-04] VITALS: Ht 180.3 cm; Wt 95.0 kg
[~2020-03-04 13:14] MED LIST changes: +ALBU2.5V NEB; +AMLO-211 PO; -AMLO10TA8 PO; +ASCO100018 PO; -ASCO10004 PO; +ATOR10TA9 PO; +FLUD0.1T PO
[2020-03-04] MEDS ORDERED: SODIUM CHLORIDE 0.9% 1,000ML IVBOLUS ONE (14:00)
[2020-03-04] MEDS ORDERED: SODIUM CHLORIDE FLUSH 10ML SYR IVF ONE (14:00)
--- NOTE | 2020-03-04 14:05 | NUR ---
PT BROUGHT BACK FROM TRIAGE WITH CHIEF COMPLAINT OF FEELING DIZZY, N/V, & WEAKNESS SINCE ABOUT 11 TODAY. HX [facility] DIALYSIS.
--- NOTE | 2020-03-04 14:11 | NUR ---
ERMD LAW AT BEDSIDE
--- NOTE | 2020-03-04 14:15 | NUR ---
2 WEEK WEIGHT LOSS SALES CONSULTANT IN PLACE, STARTED YESTERDAY.
[2020-03-04] MEDS ORDERED: ONDANSETRON 2MG/ML, 2ML ONE (14:20)
--- NOTE | 2020-03-04 14:21 | NUR ---
BLOOD CULTURES DRAWN
[2020-03-04] MEDS ORDERED: ONDANSETRON 2MG/ML, 2ML IVPush ONE (14:30)
[2020-03-04 14:48] LABS: BASOPHILS % (AUTO) 0 % (0-1); EOSINOPHILS % (AUTO) 1 % (1-7); LYMPHOCYTES % (AUTO) 6 % (22-44); MEAN CORPUSCULAR HEMOGLOBIN 30.6 pg (27.5-34.5); MONOCYTES % (AUTO) 11 % (2-9); NEUTROPHILS % (AUTO) 83 % (42-75); PLATELET COUNT 51 x10^3/uL (130-400); RED BLOOD COUNT 2.59 x10^6/uL (4.38-5.82); RED CELL DISTRIBUTION WIDTH 15.7 % (9.4-14.8)
--- NOTE | 2020-03-04 15:00 | NUR ---
ERMS LAW AT BEDSIDE.
[2020-03-04 15:01] LABS: ALANINE AMINOTRANSFERASE 21 U/L (12-78); ALBUMIN 2.8 g/dL (3.4-5.0); ANION GAP 13 mmol/L (5-15); CHLORIDE 98 mmol/L (98-107)
[2020-03-04 15:04] LABS: ALKALINE PHOSPHATASE 94 U/L (45-117); BILIRUBIN,TOTAL 0.4 mg/dL (0.2-1.0); TOTAL PROTEIN 6.5 g/dL (6.4-8.2)
[2020-03-04 15:27] LABS: MD SCAN
--- NOTE | 2020-03-04 15:35 | NUR ---
LABS PENDING FROM BLOOD BACK, WILL CALL WHEN [facility] READY.
[2020-03-04] MEDS ORDERED: POTASSIUM CHLORIDE 20 MEQ TAB.ER.PRT PO ONE (16:00)
[2020-03-04] MEDS ORDERED: POTASSIUM CHLORIDE 20 MEQ in SODIUM CHLORIDE 0.9% 250 ML IV ONE (16:00)
[2020-03-04 16:14] VITALS: BP 104/58
[2020-03-04] MEDS ORDERED: POTASSIUM CHLORIDE 20 MEQ TAB.ER.PRT ONE (16:17)
--- NOTE | 2020-03-04 16:29 | NUR ---
PT RESTING IN BED, RBCS TRANSFUSING
--- NOTE | 2020-03-04 16:37 | NUR ---
RECEIVED REPORT FROM BRENNA SCOTT, PLAN OF CARE DISCUSSED
[2020-03-04 16:43] VITALS: BP 110/55
[2020-03-04] MEDS ORDERED: CLINDAMYCIN PMX 600MG/50ML 50 ML ONE (16:45)
--- NOTE | 2020-03-04 16:50 | NUR ---
IVS INFUSING WELL. PT VERBALIZED NO NEEDS AT THIS TIME.
[2020-03-04] MEDS ORDERED: CLINDAMYCIN PMX 600MG/50ML 50 ML IV ONE (17:00)
[2020-03-04 17:22] VITALS: BP 119/57
--- NOTE | 2020-03-04 17:45 | NUR ---
PT RESTING, IV BLOOD CONTINUES TO RUN WELL. PT VERBALIZED NO NEEDS AT THIS TIME.
[2020-03-04 17:59] VITALS: BP 114/51
--- NOTE | 2020-03-04 18:33 | NUR ---
Patient/Caregiver given discharge instructions and they have confirmed that they understand the instructions. Patient ambulatory with steady gait.
[2020-03-04 18:34] VITALS: BP 117/60
== END 2020-03-04 18:36 | disposition home or self-care (01) ==
LOC: ED 16:58
DX: E86.1 Hypovolemia (principal); K61.1 Rectal abscess; R11.2 Nausea with vomiting, unspecified; I13.0 Hypertensive heart and chronic kidney disease with heart failure and stage 1 through stage 4 chronic kidney disease, or unspecified chronic kidney disease; N18.30 Chronic kidney disease, stage 3 unspecified; I50.9 Heart failure, unspecified; D63.1 Anemia in chronic kidney disease; E87.6 Hypokalemia; I45.10 Unspecified right bundle-branch block; J44.9 Chronic obstructive pulmonary disease, unspecified; K21.9 Gastro-esophageal reflux disease without esophagitis; I25.10 Atherosclerotic heart disease of native coronary artery without angina pectoris
CPT/HCPCS: 36415; 36430; 71045; 80053; 83605; 83735; 84145; 85025; 86850; 86900; 86923; 87040; 93005; 96361; 96365; 96366; 96368; 96375; 99285; J2405; J3480; J7030; J7050; P9016